=== PATIENT | male | born 1930 | race Caucasian/White ===

== ENCOUNTER 2016-10-07 09:08 | Inpatient (IN) | payer MEDICARE, OTHER ==
[2016-10-07] MEDS ORDERED: Omeprazole 20 MG Cap.CR PO PRN (12:56)
[2016-10-07] MEDS ORDERED: Clobetasol 0.05% Ointment 15 GM Tube TOP PRN (12:56)
[2016-10-07] MEDS ORDERED: PEG 400/Propylene Glycol Ophth Soln 15 ML Bottle EYEBOTH PRN (12:56)
[2016-10-07] MEDS ORDERED: Acetaminophen 325 MG Tab PO PRN (12:56)
[2016-10-07] MEDS ORDERED: Fluticasone Propionate Nasal Spray 16 GM Bottle NASBOTH PRN (14:00)
[2016-10-07] MEDS ORDERED: Diazepam 2 MG Tab PO PRN (14:43)
[2016-10-07] MEDS ORDERED: HYDROCORTISONE 2.5% TOP PRN (14:44)
[2016-10-07] MEDS: Acetaminophen/oxyCODONE 325-5 MG Tab PO PRN ×2 (16:28→20:52)
[2016-10-07] MEDS: Lutein/Minerals/Vitamin C/Vitamin E Acetate Cap PO SCH (21:08)
[2016-10-07] MEDS: Multivitamin Tab PO SCH (21:08)
[2016-10-07] MEDS: Tamsulosin 0.4 MG Cap.ER PO SCH (21:08)
[2016-10-07] MEDS: Latanoprost 0.005% Ophth Soln 2.5 ML Bottle *PTOM EYERT SCH (21:09)
[2016-10-08] MEDS: Acetaminophen/oxyCODONE 325-5 MG Tab PO PRN ×2 (01:09→07:07)
[2016-10-08] MEDS: Levothyroxine 75 MCG Tab PO SCH (07:08)
[2016-10-08] MEDS: Hydrochlorothiazide 12.5 MG Cap PO SCH (08:34)
[2016-10-08] MEDS: Aspirin 81 MG Tab.EC PO SCH (08:34)
[2016-10-08] MEDS: Finasteride 5 MG Tab PO SCH (08:35)
[2016-10-08] MEDS: Potassium Chloride 20 MEQ Tab.ER PO SCH (08:35)
[2016-10-08] MEDS: Cholecalciferol (Vitamin D3) 1,000 Unit Tab PO SCH (08:35)
[2016-10-08] MEDS ORDERED: Acetaminophen 325 MG Tab PO SCH (09:00)
--- NOTE | 2016-10-08 10:13 | PN ---
DATE SEEN: 10/08/2016 SUBJECTIVE: Arsalan Thibodeaux is an 86-year-old male admitted yesterday for swing bed. Status post spinal stenosis surgery, [facility]. There have been some issues of mentation, activity, speech, and increasing confusion. Narcotics, i.e. Percocet, maybe origin of pain. We will discontinue the Percocet. We will add naproxen sodium 500 mg b.i.d. and Tylenol 3000 mg in divided doses given routinely for pain. The wound was inspected, no complicating issues, and dressing in place. OBJECTIVE: CHEST: Clear. HEART: Regular. ABDOMEN: Benign. ASSESSMENT: Postoperative care, swing bed, spinal stenosis surgery. PLAN: Medications adjustment, as noted above. /[id number] DAWIT/MARK
[2016-10-08] MEDS: Naproxen 500 MG Tab PO SCH ×2 (10:41→21:03)
[2016-10-08] MEDS: Acetaminophen 500 MG Tab PO SCH ×3 (10:42→21:03)
--- NOTE | 2016-10-08 13:42 | HP ---
ADMISSION DATE: 10/07/2016 CHIEF COMPLAINT: Postoperative cervical spine stenosis surgery. HISTORY OF PRESENT ILLNESS: Arsalan Thibodeaux is an 86-year-old male, who resides in [facility] in [place], [place]. He moved there about 2 months ago with his from [place]. He presented over the last several months with increasingly complicated neck pain, paresthesias, hypesthesias both upper and lower extremity. He had a recent acute fall, precipitating increasing symptoms. He was seen at [facility] in [place], severe critical spinal stenosis, underwent surgery about a week ago. His postoperative course was uncomplicated with pain as a primary issue. Admitted to [facility] for swing bed. MEDICATIONS: Admitting medications include: 1. Baby aspirin 81 mg. 2. Vitamin D3 of 2000 units daily. 3. Temovate ointment b.i.d. p.r.n. rash. 4. Finasteride/Proscar 5 mg 1 p.o. daily BPH. 5. Flonase p.r.n. 6. Hydrochlorothiazide 12.5 mg 1 p.o. daily edema/blood pressure. 7. Xalatan eyedrops per protocol. 8. Levothyroxine 37.5 mg p.o. daily. 9. Multivitamin one p.o. daily. 10.Prilosec 20 mg 1 p.o. daily, GERD. 11.Potassium chloride 20 mEq 1 p.o. daily, hypokalemia. 12.Systane lubricant b.i.d. both eyes. 13.Senna S one p.o. b.i.d. p.r.n. constipation. 14.Flomax 0.8 mg at bedtime, BPH. 15.Ocuvite lutein one daily. ALLERGIES: No medication, environmental, or latex allergies. Should be noted he has had some problematic BPH, incomplete bladder emptying, documentable episodes of retained bladder quantities greater than 4 mL and subsequent catheterizations. PAST MEDICAL HISTORY: Significant for previous kidney stone operatively. He had bilateral cataract surgery. No other operative procedures, hospitalizations, unusual childhood diseases, major injuries, or fractures. Ongoing medical problems with hypertension, hypothyroidism, gastroesophageal reflux, edema, and BPH. SOCIAL HISTORY: [employer] by occupation in the [place] area, son is doing his farming. is 82. Two kids, son and daughter. Two grand children. Quit smoking 34 years ago. Nil alcohol consumption. No illicit drug use. REVIEW OF SYSTEMS: GENERAL: Troublesome pain in his neck. HEENT: Eyes, sees pretty well. Ears, hears with difficulty in crowds. Oropharynx intact dentition upper and lower plates. CHEST: No cough, wheeze, or congestion. CARDIOVASCULAR: Denies chest pain, palpitations, or syncope. : Poor voiding, chronic catheterization. GI: Regular predictable stools, no blood in stools. SKIN: No open sores or lesions. ENDOCRINE: No excessive thirst, urination. ALLERGIES: No chronic cough, wheeze, or congestion. PSYCHIATRIC: Mood stable. PHYSICAL EXAMINATION: VITAL SIGNS: 36.4, 62, 132/71, 18, and 97. GENERAL: Elderly man, cooperative, conversant. Speech was a little bit gated. HEENT: Funduscopic benign. Bright TMs. Clear nasal discharge. Mouth and oropharynx clear. Brace in place. Wound was inspected. Andrew intact. CHEST: Clear in all lung garcia. HEART: Regular rate without ectopy or significant murmur. ABDOMEN: Benign. No surgical scars. Liver edge palpable. No splenic enlargement. : Deferred. RECTAL: Deferred. EXTREMITIES: Well perfused. Gait and station not tested. SKIN: Benign nevi. LABORATORY STUDIES: Not indicated. Admission to swing bed status post cervical stenosis surgery. PLAN: Medications, care and treatment appropriate. Analgesics as indicated, complementary care and well being. /[id number] DAWIT/MARK
[2016-10-08] MEDS: Tamsulosin 0.4 MG Cap.ER PO SCH (21:03)
[2016-10-08] MEDS: Latanoprost 0.005% Ophth Soln 2.5 ML Bottle *PTOM EYERT SCH (21:03)
[2016-10-08] MEDS: Multivitamin Tab PO SCH (21:04)
[2016-10-08] MEDS: Lutein/Minerals/Vitamin C/Vitamin E Acetate Cap PO SCH (21:04)
[2016-10-09] MEDS: Levothyroxine 75 MCG Tab PO SCH (05:20)
[2016-10-09] MEDS: Cholecalciferol (Vitamin D3) 1,000 Unit Tab PO SCH (08:25)
[2016-10-09] MEDS: Hydrochlorothiazide 12.5 MG Cap PO SCH (08:25)
[2016-10-09] MEDS: Finasteride 5 MG Tab PO SCH (08:26)
[2016-10-09] MEDS: Aspirin 81 MG Tab.EC PO SCH (08:26)
[2016-10-09] MEDS: Potassium Chloride 20 MEQ Tab.ER PO SCH (08:26)
[2016-10-09] MEDS: Naproxen 500 MG Tab PO SCH ×2 (08:26→20:07)
[2016-10-09] MEDS: Acetaminophen 500 MG Tab PO SCH ×3 (08:29→21:56)
[2016-10-09] MEDS: Tamsulosin 0.4 MG Cap.ER PO SCH (20:06)
[2016-10-09] MEDS: Multivitamin Tab PO SCH (20:07)
[2016-10-09] MEDS: Lutein/Minerals/Vitamin C/Vitamin E Acetate Cap PO SCH (20:07)
[2016-10-09] MEDS: Latanoprost 0.005% Ophth Soln 2.5 ML Bottle *PTOM EYERT SCH (20:08)
[2016-10-10] MEDS: Acetaminophen 500 MG Tab PO SCH ×3 (03:35→21:29)
[2016-10-10] MEDS: Levothyroxine 75 MCG Tab PO SCH (06:38)
[2016-10-10] MEDS: Aspirin 81 MG Tab.EC PO SCH (08:56)
[2016-10-10] MEDS: Cholecalciferol (Vitamin D3) 1,000 Unit Tab PO SCH (08:57)
[2016-10-10] MEDS: Potassium Chloride 20 MEQ Tab.ER PO SCH (08:57)
[2016-10-10] MEDS: Naproxen 500 MG Tab PO SCH ×2 (08:57→20:17)
[2016-10-10] MEDS: Hydrochlorothiazide 12.5 MG Cap PO SCH (08:57)
[2016-10-10] MEDS: Finasteride 5 MG Tab PO SCH (08:57)
[2016-10-10] MEDS: Latanoprost 0.005% Ophth Soln 2.5 ML Bottle *PTOM EYERT SCH (20:13)
[2016-10-10] MEDS: Lutein/Minerals/Vitamin C/Vitamin E Acetate Cap PO SCH (20:14)
[2016-10-10] MEDS: Multivitamin Tab PO SCH (20:15)
[2016-10-10] MEDS: Tamsulosin 0.4 MG Cap.ER PO SCH (21:29)
[2016-10-11] MEDS: Acetaminophen 500 MG Tab PO SCH ×3 (04:02→22:02)
[2016-10-11] MEDS: Levothyroxine 75 MCG Tab PO SCH (05:53)
[2016-10-11] MEDS: Aspirin 81 MG Tab.EC PO SCH (08:30)
[2016-10-11] MEDS: Cholecalciferol (Vitamin D3) 1,000 Unit Tab PO SCH (08:31)
[2016-10-11] MEDS: Potassium Chloride 20 MEQ Tab.ER PO SCH (08:31)
[2016-10-11] MEDS: Naproxen 500 MG Tab PO SCH ×2 (08:31→20:48)
[2016-10-11] MEDS: Hydrochlorothiazide 12.5 MG Cap PO SCH (08:31)
[2016-10-11] MEDS: Finasteride 5 MG Tab PO SCH (08:31)
[2016-10-11] MEDS: traMADol 50 MG Tab PO PRN (10:34)
[2016-10-11] MEDS: Tamsulosin 0.4 MG Cap.ER PO SCH (20:47)
[2016-10-11] MEDS: Multivitamin Tab PO SCH (20:48)
[2016-10-11] MEDS: Latanoprost 0.005% Ophth Soln 2.5 ML Bottle *PTOM EYERT SCH (20:48)
[2016-10-11] MEDS: Lutein/Minerals/Vitamin C/Vitamin E Acetate Cap PO SCH (20:48)
[2016-10-12] MEDS: traMADol 50 MG Tab PO PRN ×3 (00:06→17:18)
[2016-10-12] MEDS: Acetaminophen 500 MG Tab PO SCH ×3 (03:27→22:10)
[2016-10-12] MEDS: Levothyroxine 75 MCG Tab PO SCH (05:55)
[2016-10-12] MEDS: Naproxen 500 MG Tab PO SCH ×2 (10:04→22:09)
[2016-10-12] MEDS: Finasteride 5 MG Tab PO SCH (10:04)
[2016-10-12] MEDS: Potassium Chloride 20 MEQ Tab.ER PO SCH (10:04)
[2016-10-12] MEDS: Aspirin 81 MG Tab.EC PO SCH (10:04)
[2016-10-12] MEDS: Hydrochlorothiazide 12.5 MG Cap PO SCH (10:05)
[2016-10-12] MEDS: Cholecalciferol (Vitamin D3) 1,000 Unit Tab PO SCH (10:05)
[2016-10-12] MEDS: Tamsulosin 0.4 MG Cap.ER PO SCH (22:08)
[2016-10-12] MEDS: Latanoprost 0.005% Ophth Soln 2.5 ML Bottle *PTOM EYERT SCH (22:09)
[2016-10-12] MEDS: Multivitamin Tab PO SCH (22:09)
[2016-10-12] MEDS: Lutein/Minerals/Vitamin C/Vitamin E Acetate Cap PO SCH (22:09)
[2016-10-13] MEDS: Levothyroxine 75 MCG Tab PO SCH (05:09)
[2016-10-13] MEDS: Acetaminophen 500 MG Tab PO SCH ×3 (05:10→21:55)
[2016-10-13] MEDS: Naproxen 500 MG Tab PO SCH ×2 (08:48→20:53)
[2016-10-13] MEDS: Potassium Chloride 20 MEQ Tab.ER PO SCH (08:48)
[2016-10-13] MEDS: Finasteride 5 MG Tab PO SCH (08:48)
[2016-10-13] MEDS: Cholecalciferol (Vitamin D3) 1,000 Unit Tab PO SCH (08:48)
[2016-10-13] MEDS: Aspirin 81 MG Tab.EC PO SCH (08:48)
[2016-10-13] MEDS: Hydrochlorothiazide 12.5 MG Cap PO SCH (08:48)
[2016-10-13] MEDS: traMADol 50 MG Tab PO PRN (16:45)
[2016-10-13] MEDS ORDERED: oxyCODONE 5 MG Tab PO ONE (18:45)
[2016-10-13] MEDS: Tamsulosin 0.4 MG Cap.ER PO SCH (20:52)
[2016-10-13] MEDS: Latanoprost 0.005% Ophth Soln 2.5 ML Bottle *PTOM EYERT SCH (20:53)
[2016-10-13] MEDS: Multivitamin Tab PO SCH (20:53)
[2016-10-13] MEDS: Lutein/Minerals/Vitamin C/Vitamin E Acetate Cap PO SCH (20:53)
[2016-10-14] MEDS: Acetaminophen 500 MG Tab PO SCH ×3 (04:03→21:06)
[2016-10-14] MEDS: Levothyroxine 75 MCG Tab PO SCH (06:01)
[2016-10-14] MEDS: Hydrochlorothiazide 12.5 MG Cap PO SCH (08:00)
[2016-10-14] MEDS: Cholecalciferol (Vitamin D3) 1,000 Unit Tab PO SCH (08:00)
[2016-10-14] MEDS: Aspirin 81 MG Tab.EC PO SCH (08:00)
[2016-10-14] MEDS: Finasteride 5 MG Tab PO SCH (08:00)
[2016-10-14] MEDS: Potassium Chloride 20 MEQ Tab.ER PO SCH (08:00)
[2016-10-14] MEDS: Naproxen 500 MG Tab PO SCH ×2 (08:00→21:06)
--- NOTE | 2016-10-14 13:13 | CR ---
INDICATION: Fall, pain. RIGHT SHOULDER, COMPLETE: Four images of the right shoulder were obtained with three projections and revealed moderate hypertrophic degenerative changes at the AC joint and at the glenohumeral joint with narrowing of the inferior portion of the glenohumeral joint to a significant degree with residual joint space of only 1.5 mm on that view. A definite acute fracture or dislocation was not identified, however. IMPRESSION: Osteoarthritis AC joint and glenohumeral joint with significant narrowing of the glenohumeral joint. MTDD
--- NOTE | 2016-10-14 13:15 | CR ---
INDICATION: Fall, pain. CERVICAL SPINE: Four images of the cervical spine were obtained, AP, odontoid and two lateral views, revealing very poor visualization of the odontoid, however, the odontoid appeared grossly intact. Evidence of apparent laminectomy is noted in the cervical spine with multiple skin clips present posteriorly. Hypertrophic degenerative changes are noted at the lateral masses and anteriorly at C4-5, and C5-6 to a lesser degree, and to a much greater extent at C6-7. The vertebral elements appear to be fairly well aligned, without a definite fracture or dislocation. Bone density appeared to be normal. Prevertebral space appeared to be normal. IMPRESSION: 1. No acute fracture or dislocation identified. 2. Post-surgical change - laminectomy. 3. Osteoarthritis mostly at the posterior elements, but also anteriorly at C4- 5 and especially C6-7 with relatively milder hypertrophic changes at C5-6. 4. The odontoid is not well visualized. MTDD
[2016-10-14] MEDS: traMADol 50 MG Tab PO PRN (17:37)
[2016-10-14] MEDS: Tamsulosin 0.4 MG Cap.ER PO SCH (21:05)
[2016-10-14] MEDS: Lutein/Minerals/Vitamin C/Vitamin E Acetate Cap PO SCH (21:06)
[2016-10-14] MEDS: Latanoprost 0.005% Ophth Soln 2.5 ML Bottle *PTOM EYERT SCH (21:06)
[2016-10-14] MEDS: Multivitamin Tab PO SCH (21:06)
[2016-10-15] MEDS: Acetaminophen 500 MG Tab PO SCH ×3 (04:31→21:48)
[2016-10-15] MEDS: Levothyroxine 75 MCG Tab PO SCH (06:24)
[2016-10-15] MEDS: Finasteride 5 MG Tab PO SCH (10:09)
[2016-10-15] MEDS: Potassium Chloride 20 MEQ Tab.ER PO SCH (10:09)
[2016-10-15] MEDS: Naproxen 500 MG Tab PO SCH ×2 (10:09→20:18)
[2016-10-15] MEDS: Cholecalciferol (Vitamin D3) 1,000 Unit Tab PO SCH (10:09)
[2016-10-15] MEDS: Hydrochlorothiazide 12.5 MG Cap PO SCH (10:09)
[2016-10-15] MEDS: Aspirin 81 MG Tab.EC PO SCH (10:09)
[2016-10-15] MEDS: traMADol 50 MG Tab PO PRN ×2 (11:15→18:47)
[2016-10-15] MEDS: Tamsulosin 0.4 MG Cap.ER PO SCH (20:18)
[2016-10-15] MEDS: Lutein/Minerals/Vitamin C/Vitamin E Acetate Cap PO SCH (20:18)
[2016-10-15] MEDS: Multivitamin Tab PO SCH (20:18)
[2016-10-15] MEDS: Latanoprost 0.005% Ophth Soln 2.5 ML Bottle *PTOM EYERT SCH (20:19)
[2016-10-16] MEDS: Acetaminophen 500 MG Tab PO SCH ×3 (03:56→21:00)
[2016-10-16] MEDS: Levothyroxine 75 MCG Tab PO SCH (06:21)
[2016-10-16] MEDS ORDERED: Perform Pain Reliever Gel 89 ML Tube TP ONE ×2 (08:04→11:36)
[2016-10-16] MEDS: Hydrochlorothiazide 12.5 MG Cap PO SCH (08:52)
[2016-10-16] MEDS: Aspirin 81 MG Tab.EC PO SCH (08:52)
[2016-10-16] MEDS: Potassium Chloride 20 MEQ Tab.ER PO SCH (08:52)
[2016-10-16] MEDS: Finasteride 5 MG Tab PO SCH (08:53)
[2016-10-16] MEDS: Naproxen 500 MG Tab PO SCH ×2 (08:53→20:48)
[2016-10-16] MEDS: Cholecalciferol (Vitamin D3) 1,000 Unit Tab PO SCH (08:53)
[2016-10-16] MEDS: traMADol 50 MG Tab PO PRN (17:58)
[2016-10-16] MEDS: Tamsulosin 0.4 MG Cap.ER PO SCH (20:48)
[2016-10-16] MEDS: Multivitamin Tab PO SCH (20:49)
[2016-10-16] MEDS: Lutein/Minerals/Vitamin C/Vitamin E Acetate Cap PO SCH (20:49)
[2016-10-16] MEDS: Latanoprost 0.005% Ophth Soln 2.5 ML Bottle *PTOM EYERT SCH (20:50)
[2016-10-16] MEDS: FLUoxetine 10 MG Cap PO SCH (20:58)
[2016-10-17] MEDS: Acetaminophen 500 MG Tab PO SCH ×3 (04:04→21:17)
[2016-10-17] MEDS: Levothyroxine 75 MCG Tab PO SCH (05:26)
[2016-10-17] MEDS: traMADol 50 MG Tab PO PRN ×2 (07:43→18:03)
[2016-10-17] MEDS: Aspirin 81 MG Tab.EC PO SCH (08:11)
[2016-10-17] MEDS: Potassium Chloride 20 MEQ Tab.ER PO SCH (08:11)
[2016-10-17] MEDS: Hydrochlorothiazide 12.5 MG Cap PO SCH (08:11)
[2016-10-17] MEDS: Finasteride 5 MG Tab PO SCH (08:11)
[2016-10-17] MEDS: Naproxen 500 MG Tab PO SCH ×2 (08:11→20:31)
[2016-10-17] MEDS: Cholecalciferol (Vitamin D3) 1,000 Unit Tab PO SCH (08:12)
[2016-10-17] MEDS: [UNRECOGNIZED DRUG - OTHER] TOP PRN ×2 (08:16→14:24)
[2016-10-17] MEDS: Lutein/Minerals/Vitamin C/Vitamin E Acetate Cap PO SCH (20:31)
[2016-10-17] MEDS: Tamsulosin 0.4 MG Cap.ER PO SCH (20:31)
[2016-10-17] MEDS: Latanoprost 0.005% Ophth Soln 2.5 ML Bottle *PTOM EYERT SCH (20:32)
[2016-10-17] MEDS: Multivitamin Tab PO SCH (20:32)
[2016-10-17] MEDS: FLUoxetine 10 MG Cap PO SCH (20:35)
[2016-10-18] MEDS: Acetaminophen 500 MG Tab PO SCH ×3 (04:14→21:24)
[2016-10-18] MEDS: Levothyroxine 75 MCG Tab PO SCH (05:10)
[2016-10-18] MEDS: traMADol 50 MG Tab PO PRN ×2 (08:16→15:58)
[2016-10-18] MEDS: Aspirin 81 MG Tab.EC PO SCH (08:24)
[2016-10-18] MEDS: Naproxen 500 MG Tab PO SCH ×2 (08:24→21:22)
[2016-10-18] MEDS: Hydrochlorothiazide 12.5 MG Cap PO SCH (08:24)
[2016-10-18] MEDS: Finasteride 5 MG Tab PO SCH (08:24)
[2016-10-18] MEDS: Potassium Chloride 20 MEQ Tab.ER PO SCH (08:24)
[2016-10-18] MEDS: Cholecalciferol (Vitamin D3) 1,000 Unit Tab PO SCH (08:26)
[2016-10-18] MEDS: Tamsulosin 0.4 MG Cap.ER PO SCH (21:21)
[2016-10-18] MEDS: Lutein/Minerals/Vitamin C/Vitamin E Acetate Cap PO SCH (21:22)
[2016-10-18] MEDS: Multivitamin Tab PO SCH (21:23)
[2016-10-18] MEDS: FLUoxetine 10 MG Cap PO SCH (21:23)
[2016-10-18] MEDS: Latanoprost 0.005% Ophth Soln 2.5 ML Bottle *PTOM EYERT SCH (21:24)
[2016-10-19] MEDS: Acetaminophen 500 MG Tab PO SCH ×3 (05:00→22:02)
[2016-10-19] MEDS: Levothyroxine 75 MCG Tab PO SCH (05:00)
[2016-10-19] MEDS: Hydrochlorothiazide 12.5 MG Cap PO SCH (08:25)
[2016-10-19] MEDS: Potassium Chloride 20 MEQ Tab.ER PO SCH (08:25)
[2016-10-19] MEDS: Aspirin 81 MG Tab.EC PO SCH (08:25)
[2016-10-19] MEDS: Cholecalciferol (Vitamin D3) 1,000 Unit Tab PO SCH (08:26)
[2016-10-19] MEDS: Naproxen 500 MG Tab PO SCH ×2 (08:26→20:53)
[2016-10-19] MEDS: Finasteride 5 MG Tab PO SCH (08:26)
[2016-10-19] MEDS: traMADol 50 MG Tab PO PRN ×2 (10:38→15:55)
[2016-10-19] MEDS: Tamsulosin 0.4 MG Cap.ER PO SCH (20:53)
[2016-10-19] MEDS: Multivitamin Tab PO SCH (20:54)
[2016-10-19] MEDS: Latanoprost 0.005% Ophth Soln 2.5 ML Bottle *PTOM EYERT SCH (20:54)
[2016-10-19] MEDS: FLUoxetine 10 MG Cap PO SCH (20:54)
[2016-10-19] MEDS: Lutein/Minerals/Vitamin C/Vitamin E Acetate Cap PO SCH (20:54)
[2016-10-20] MEDS: Acetaminophen 500 MG Tab PO SCH ×3 (04:36→21:20)
[2016-10-20] MEDS: Levothyroxine 75 MCG Tab PO SCH (07:34)
[2016-10-20] MEDS: traMADol 50 MG Tab PO PRN ×3 (07:45→19:42)
[2016-10-20] MEDS: Aspirin 81 MG Tab.EC PO SCH (08:58)
[2016-10-20] MEDS: Naproxen 500 MG Tab PO SCH ×2 (08:58→21:19)
[2016-10-20] MEDS: Potassium Chloride 20 MEQ Tab.ER PO SCH (08:58)
[2016-10-20] MEDS: Hydrochlorothiazide 12.5 MG Cap PO SCH (08:58)
[2016-10-20] MEDS: Finasteride 5 MG Tab PO SCH (08:59)
[2016-10-20] MEDS: Cholecalciferol (Vitamin D3) 1,000 Unit Tab PO SCH (08:59)
[2016-10-20] MEDS: [UNRECOGNIZED DRUG - OTHER] TOP PRN ×2 (10:00→21:20)
[2016-10-20] MEDS: Tamsulosin 0.4 MG Cap.ER PO SCH (21:19)
[2016-10-20] MEDS: FLUoxetine 10 MG Cap PO SCH (21:20)
[2016-10-20] MEDS: Multivitamin Tab PO SCH (21:20)
[2016-10-20] MEDS: Lutein/Minerals/Vitamin C/Vitamin E Acetate Cap PO SCH (21:20)
[2016-10-20] MEDS: Latanoprost 0.005% Ophth Soln 2.5 ML Bottle *PTOM EYERT SCH (21:20)
[2016-10-21] MEDS: Acetaminophen 500 MG Tab PO SCH ×3 (04:40→22:06)
[2016-10-21] MEDS: Levothyroxine 75 MCG Tab PO SCH (06:27)
[2016-10-21] MEDS: traMADol 50 MG Tab PO PRN ×2 (08:28→17:09)
[2016-10-21] MEDS: Potassium Chloride 20 MEQ Tab.ER PO SCH (08:37)
[2016-10-21] MEDS: Hydrochlorothiazide 12.5 MG Cap PO SCH (08:37)
[2016-10-21] MEDS: Naproxen 500 MG Tab PO SCH ×2 (08:37→20:28)
[2016-10-21] MEDS: Finasteride 5 MG Tab PO SCH (08:37)
[2016-10-21] MEDS: Aspirin 81 MG Tab.EC PO SCH (08:37)
[2016-10-21] MEDS: Cholecalciferol (Vitamin D3) 1,000 Unit Tab PO SCH (08:38)
[2016-10-21] MEDS: [UNRECOGNIZED DRUG - OTHER] TOP PRN (08:41)
--- NOTE | 2016-10-21 08:41 | PCM.PN ---
- General Info Date of Service: 10/21/16 Admission Dx/Problem (Free Text): This is an 86-year-old male patient that status post neck surgery for severe spinal stenosis. He still has neck pain. The nurses reported the removed the bandage and there was some they kilo drainage. No erythema around the wound. He denies fevers at this time. The wound discharge was sent for culture last night. - Patient Data Vitals - Most Recent: Last Vital Signs Temp 97.5 F 10/20/16 08:00 Pulse 88 10/20/16 08:00 Resp 18 10/20/16 08:00 BP 124/72 10/20/16 08:00 Pulse Ox 98 10/20/16 08:00 Weight - Most Recent: 141 lb 9.6 oz I&O - Last 24 Hours: Intake & Output 10/20/16 10/21/16 10/21/16 22:59 06:59 14:59 Intake Total 50 Balance 50 Santana Results Last 24 Hours: Microbiology 10/20/16 10:45 Gram Stain - Final Skin / Skin Scrapings - Neck Routine Culture - Preliminary Gram Positive Cocci Med Orders - Current: Current Medications Acetaminophen (Tylenol Extra Strength) 1,000 mg PO TID@0400,1200,2200 [facility] Last Admin: 10/21/16 04:40 Dose: 1,000 mg Aspirin (Halfprin) 81 mg PO DAILY [facility] Last Admin: 10/20/16 08:58 Dose: 81 mg Cholecalciferol (Vitamin D3) 2,000 units PO DAILY [facility] Last Admin: 10/20/16 08:59 Dose: 2,000 units Clobetasol Propionate (Temovate 0.05% Oint) 0 gm TOP BID PRN PRN Reason: RASH/ITCHING Cyanocobalamin (Vitamin B12) 1,000 mcg PO DAILY [facility] Diazepam (Valium) 2 mg PO TID PRN PRN Reason: MUSCLE SPASMS Last Admin: 10/09/16 18:51 Dose: 2 mg Finasteride (Proscar) 5 mg PO DAILY [facility] Last Admin: 10/20/16 08:59 Dose: 5 mg Fluoxetine HCl (Prozac) 10 mg PO BEDTIME [facility] Last Admin: 10/20/16 21:20 Dose: 10 mg Fluticasone Propionate (Flonase) 0 gm NASBOTH DAILY PRN PRN Reason: RHINITIS Hydrochlorothiazide (Hydrochlorothiazide) 12.5 mg PO DAILY [facility] Last Admin: 10/20/16 08:58 Dose: 12.5 mg Hydrocortisone (Hydrocortisone 2.5% Crm) 0 gm TOP TID PRN PRN Reason: ITCHING/RASH Latanoprost (Xalatan 0.005% Ophth Soln) 0 ml EYERT BEDTIME [facility] Last Admin: 10/20/16 21:20 Dose: 1 drop Levothyroxine Sodium (Levothyroxine) 37.5 mcg PO DAILY@0600 [facility] Last Admin: 10/21/16 06:27 Dose: 37.5 mcg Multivitamins/Minerals/Vitamin C (Tab-A-Alee) 1 tab PO BEDTIME [facility] Last Admin: 10/20/16 21:20 Dose: 1 tab Naproxen (Naprosyn) 500 mg PO BID [facility] Last Admin: 10/20/16 21:19 Dose: 500 mg Perform Pain (Relieving Gel) 1 applic TOP QID PRN PRN Reason: pain right shoulder Last Admin: 10/20/16 21:20 Dose: 1 applic Omeprazole (Omeprazole) 20 mg PO DAILY PRN PRN Reason: ACID REFLUX Potassium Chloride (Klor-Con M20) 20 meq PO DAILY [facility] Last Admin: 10/20/16 08:58 Dose: 20 meq Propylene Glycol (Systane Lubricant) 0 ml EYEBOTH BID PRN PRN Reason: Dry Eyes Last Admin: 10/07/16 21:07 Dose: 1 drop Senna/Docusate Sodium (Senna Plus) 1 tab PO BID [facility] Last Admin: 10/20/16 21:20 Dose: 1 tab Tamsulosin HCl (Flomax) 0.8 mg PO BEDTIME [facility] Last Admin: 10/20/16 21:19 Dose: 0.8 mg Tramadol HCl (Ultram) 50 mg PO TID PRN PRN Reason: Pain Last Admin: 10/21/16 08:28 Dose: 50 mg Vit C/Vit E/Zinc/Copper/Lutein (Ocuvite Lutein) 1 each PO BEDTIME [facility] Last Admin: 10/20/16 21:20 Dose: 1 each Discontinued Medications Acetaminophen (Tylenol) 650 mg PO Q4H PRN PRN Reason: Pain Acetaminophen (Tylenol) 1,000 mg PO TID [facility] Acetaminophen (Tylenol Extra Strength) 1,000 mg PO TID [facility] Last Admin: 10/08/16 21:03 Dose: 1,000 mg Oxycodone HCl (Oxycodone) 5 mg PO ONETIME ONE Stop: 10/13/16 18:46 Last Admin: 10/13/16 19:02 Dose: 5 mg Oxycodone/Acetaminophen (Percocet 325-5 Mg) 1 tab PO Q4H PRN PRN Reason: PAIN Last Admin: 10/08/16 07:07 Dose: 1 tab Senna/Docusate Sodium (Senna Plus) 1 tab PO BID PRN PRN Reason: Constipation Last Admin: 10/14/16 17:36 Dose: 1 tab - Exam General: Alert, Oriented, Cooperative Neck: Other (Hard colar implace) Lungs: Normal Respiratory Effort Skin: Other (Wound has megan in. Little bit of thick yellow drainage. No erythema.) - Problem List & Annotations (1) H/O neck surgery SNOMED Code(s): 037398271 Code(s): Z98.890 - OTHER SPECIFIED POSTPROCEDURAL STATES Status: Acute Current Visit: Yes (2) Wound drainage SNOMED Code(s): 288532014, 742905118 Code(s): T14.8 - OTHER INJURY OF UNSPECIFIED BODY REGION Status: Acute Current Visit: Yes - Problem List Review Problem List Initiated/Reviewed/Updated: Yes - My Orders Last 24 Hours: My Active Orders 10/20/16 10:45 CULTURE ROUTINE + SMEAR [RM] Routine 10/21/16 09:00 Cyanocobalamin (Vitamin B12) [Vitamin B12] 1,000 mcg PO DAILY - Plan Plan:: 1. The wound has gram-positive cocci. Culture pending. 2. Start cephalexin 5 mg 3 times a day. 3. Patient has an appointment in 2 days with a PA from neurosurgery.
[2016-10-21] MEDS: Cephalexin 500 MG Cap PO SCH ×3 (09:05→20:29)
[2016-10-21] MEDS: Cyanocobalamin (Vitamin B12) 1,000 MCG Tab PO SCH (09:05)
[2016-10-21] MEDS: Tamsulosin 0.4 MG Cap.ER PO SCH (20:29)
[2016-10-21] MEDS: Latanoprost 0.005% Ophth Soln 2.5 ML Bottle *PTOM EYERT SCH (20:29)
[2016-10-21] MEDS: Multivitamin Tab PO SCH (20:30)
[2016-10-21] MEDS: FLUoxetine 10 MG Cap PO SCH (20:31)
[2016-10-21] MEDS: Lutein/Minerals/Vitamin C/Vitamin E Acetate Cap PO SCH (20:33)
[2016-10-22] MEDS: traMADol 50 MG Tab PO PRN ×2 (08:15→17:19)
[2016-10-22] MEDS: Aspirin 81 MG Tab.EC PO SCH (08:44)
[2016-10-22] MEDS: Hydrochlorothiazide 12.5 MG Cap PO SCH (08:44)
[2016-10-22] MEDS: Cyanocobalamin (Vitamin B12) 1,000 MCG Tab PO SCH (08:45)
[2016-10-22] MEDS: Cephalexin 500 MG Cap PO SCH ×3 (08:45→20:31)
[2016-10-22] MEDS: Finasteride 5 MG Tab PO SCH (08:45)
[2016-10-22] MEDS: Potassium Chloride 20 MEQ Tab.ER PO SCH (08:45)
[2016-10-22] MEDS: Naproxen 500 MG Tab PO SCH ×2 (08:45→20:31)
[2016-10-22] MEDS: Cholecalciferol (Vitamin D3) 1,000 Unit Tab PO SCH (08:45)
[2016-10-22] MEDS: Acetaminophen 500 MG Tab PO SCH ×3 (11:30→21:57)
[2016-10-22] MEDS: Levothyroxine 75 MCG Tab PO SCH (16:29)
[2016-10-22] MEDS: Multivitamin Tab PO SCH (20:31)
[2016-10-22] MEDS: FLUoxetine 10 MG Cap PO SCH (20:31)
[2016-10-22] MEDS: Lutein/Minerals/Vitamin C/Vitamin E Acetate Cap PO SCH (20:31)
[2016-10-22] MEDS: Latanoprost 0.005% Ophth Soln 2.5 ML Bottle *PTOM EYERT SCH (20:31)
[2016-10-22] MEDS: Tamsulosin 0.4 MG Cap.ER PO SCH (20:31)
[2016-10-23] MEDS: Acetaminophen 500 MG Tab PO SCH ×2 (04:57→18:51)
[2016-10-23] MEDS: Levothyroxine 75 MCG Tab PO SCH (05:00)
[2016-10-23] MEDS: traMADol 50 MG Tab PO PRN ×2 (07:36→13:30)
[2016-10-23 07:43] VITALS: BP 158/81
[2016-10-23] MEDS: Hydrochlorothiazide 12.5 MG Cap PO SCH (09:49)
[2016-10-23] MEDS: Aspirin 81 MG Tab.EC PO SCH (09:50)
[2016-10-23] MEDS: Naproxen 500 MG Tab PO SCH (09:51)
[2016-10-23] MEDS: Cephalexin 500 MG Cap PO SCH (09:51)
[2016-10-23] MEDS: Potassium Chloride 20 MEQ Tab.ER PO SCH (09:51)
[2016-10-23] MEDS: Finasteride 5 MG Tab PO SCH (09:52)
[2016-10-23] MEDS: Cholecalciferol (Vitamin D3) 1,000 Unit Tab PO SCH (09:52)
[2016-10-23] MEDS: Cyanocobalamin (Vitamin B12) 1,000 MCG Tab PO SCH (09:52)
--- NOTE | 2016-10-23 10:24 | PCM.SN ---
- Free Text/Narrative Note: Ok to take Ultram with to appt in [place].
[2016-10-23] MEDS ORDERED: Perform Pain Reliever Gel 89 ML Tube TP PRN (11:37)
--- NOTE | 2016-10-28 02:13 | DISCH ---
DISCHARGE DATE: 10/23/2016 REASON FOR ADMISSION: 1. Cervical stenosis status post surgery. 2. Constipation. DISCHARGE DIAGNOSES: 1. Wound check. 2. 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 BRIEF HISTORY: This is an 86-year-old, admitted to [facility] on October 07 for rehabilitation. Neck pain was difficult to control. On a followup visit to [facility] on the , he was subsequently admitted to rule out infection and further investigation with an MRI. As such, we discharged him from our system on the . I spent less than 30 minutes into discharge. /[id number] TING/MARK
== END 2016-10-23 18:15 | disposition still patient (30) | DRG 552 ==
LOC: FB.MS 12:01
PROVIDERS: ADMIT Family Medicine; ATTEND Family Medicine
DX: M54.2 Cervicalgia (principal); T81.4XXA Infection following a procedure, initial encounter; Z98.890 Other specified postprocedural states; I10 Essential (primary) hypertension; E03.9 Hypothyroidism, unspecified; K21.9 Gastro-esophageal reflux disease without esophagitis; Z79.82 Long term (current) use of aspirin; Z87.891 Personal history of nicotine dependence; M25.511 Pain in right shoulder; N40.1 Benign prostatic hyperplasia with lower urinary tract symptoms; R33.8 Other retention of urine; R39.14 Feeling of incomplete bladder emptying; R89.5 Abnormal microbiological findings in specimens from other organs, systems and tissues; M48.02 Spinal stenosis, cervical region
CPT/HCPCS: 72040; 73030-RT; 87070; 87077; 87186; 87205; 97110-GO; 97110-GP; 97116-GP; 97161-GP; 97166-GO; 97530-GO; 97530-GO-KX; 97530-GP; 97535-GO; 97542-GO; A9270-GY

== ENCOUNTER 2016-10-27 10:42 | Inpatient (IN) | payer MEDICARE, OTHER ==
[2016-10-27] MEDS: Acetaminophen 325 MG Tab PO PRN ×2 (13:10→18:21)
[2016-10-27] MEDS ORDERED: Acetaminophen/HYDROcodone 325-5 MG Tab PO PRN (15:02)
[2016-10-27] MEDS ORDERED: Fluticasone Propionate Nasal Spray 16 GM Bottle NAS PRN (15:06)
[2016-10-27] MEDS ORDERED: Clobetasol 0.05% Ointment 15 GM Tube TOP PRN (15:06)
[2016-10-27] MEDS ORDERED: PEG 400/Propylene Glycol Ophth Soln 15 ML Bottle EYEBOTH PRN (15:06)
[2016-10-27] MEDS ORDERED: Pantoprazole 40 MG Tab.CR PO PRN (15:06)
[2016-10-27] MEDS ORDERED: ASCORBATE CALCIUM PO PRN (15:06)
[2016-10-27] MEDS ORDERED: Non-Formulary Medication 1 Each (Triamcinolone Acetonide [Nasacort] 1 SPRAY) NASBOTH PRN (15:06)
[2016-10-27] MEDS ORDERED: Acetaminophen 325 MG Tab PO PRN (15:06)
[2016-10-27] MEDS ORDERED: Perform Pain Reliever Gel 89 ML Tube TP PRN (16:00)
[2016-10-27] MEDS: Sodium Chloride 0.9% 10 ML Syringe FLUSH PRN ×2 (16:20→20:25)
[2016-10-27] MEDS: Sodium Chloride 0.9% 250 ML IV SCH (16:25)
[2016-10-27] MEDS: Cefepime 2 GM in Sodium Chloride 0.9% 50 ML IV SCH (16:26)
[2016-10-27] MEDS ORDERED: Clobetasol 0.05% Crm 15 GM Tube TOP PRN (17:00)
--- NOTE | 2016-10-27 17:34 | PCM.HP ---
H&P History of Present Illness - General Date of Service: 10/27/16 Admit Problem/Dx: Admission Diagnosis/Problem Admission Diagnosis/Problem Infection of skin Source of Information: Patient History Limitations: Reports: No Limitations - History of Present Illness Initial Comments - Free Text/Narative: This is a 86-year-old male patient is status post cervical laminectomy. Had a little drainage from the wound and was seen in [place]. He was admitted and infectious disease saw him send him back on swing bed with vancomycin. He states he feels good. He denies fevers, chills. He has a little neck pain. He has little bit of right low back pain. Posterior Neck Pain Score (Numeric/FACES): 5 - Related Data Allergies/Adverse Reactions: Allergies Allergy/AdvReac Type Severity Reaction Status Date / Time No Known Allergies Allergy Verified 10/07/16 15:31 Home Medications: Home Meds Acetaminophen [Tylenol] 650 mg PO Q4H PRN 10/07/16 [History] Cholecalciferol (Vitamin D3) [Vitamin D3] 2,000 unit PO DAILY 10/07/16 [History] Clobetasol [Temovate 0.05% Crm] 1 applic TOP BID PRN 10/07/16 [History] Finasteride 5 mg PO DAILY 10/07/16 [History] Hydrochlorothiazide 12.5 mg PO DAILY 10/07/16 [History] Latanoprost [Xalatan 0.005% Ophth Soln] 1 drop EYERT BEDTIME 10/07/16 [History] Levothyroxine 37.5 mcg PO DAILY 10/07/16 [History] Lutein 6 mg PO BEDTIME 10/07/16 [History] Multivitamin [Daily Alee] 1 tab PO BEDTIME 10/07/16 [History] Omeprazole 20 mg PO DAILY PRN 10/07/16 [History] Potassium Chloride [K-Tab ER] 20 meq PO DAILY 10/07/16 [History] Propylene Glycol/Peg 400 [Systane 0.3-0.4% Eye Drops] 1 drop EYEBOTH BID PRN 11/15 [History] Sennosides/Docusate Sodium [Senna-S] 1 tab PO BID PRN 10/07/16 [History] Tamsulosin [Flomax] 0.8 mg PO BEDTIME 10/07/16 [History] Triamcinolone Acetonide [Nasacort] 1 spray NASBOTH BID PRN 10/07/16 [History] Ascorbate Calcium [Vitamin C] 250 mg PO ASDIRECTED PRN 10/27/16 [History] Aspirin [Halfprin] 81 mg PO DAILY 10/27/16 [History] Cyanocobalamin (Vitamin B-12) [B-12] 1,000 mcg PO DAILY 10/27/16 [History] FLUoxetine [PROzac] 10 mg PO BEDTIME 10/27/16 [History] Heparin Sodium,Porcine/PF [Heparin Lock Flush 100 Unit/ml] 300 unit IV ASDIRECTED 10/27/16 [History] Lutein/Min/Vit C/Vit E Acetate [Ocuvite Lutein] 1 cap PO BEDTIME 10/27/16 [ History] Menthol [Perform Pain Reliever] 1 applic TP QID PRN 10/27/16 [History] Past Medical History HEENT History: Reports: Cataract, Glaucoma, Macular Degeneration Cardiovascular History: Reports: Hypertension Gastrointestinal History: Reports: Other (See Below) Other Gastrointestinal History: Acid reflux Genitourinary History: Reports: BPH Musculoskeletal History: Reports: Arthritis, Other (See Below) Other Musculoskeletal History: Arthritis in back, spine and right thumb. Endocrine/Metabolic History: Reports: Hypothyroidism Hematologic History: Reports: B12 Deficiency Dermatologic History: Reports: Eczema - Infectious Disease History Infectious Disease History: Reports: Chicken Pox, Measles, Mumps - Past Surgical History HEENT Surgical History: Reports: Other (See Below) Other HEENT Surgeries/Procedures: Laminectomy 10/04/16. Cardiovascular Surgical History: Reports: None GI Surgical History: Reports: None Male Surgical History: Reports: Kidney Stone Extraction Endocrine Surgical History: Reports: None Neurological Surgical History: Reports: Laminectomy Musculoskeletal Surgical History: Reports: Other (See Below) Other Musculoskeletal Surgeries/Procedures:: cervical laminectomy approx 1 month ago Social & Family History - Family History Family Medical History: Noncontributory - Tobacco Use Smoking Status *Q: Former Smoker Used Tobacco, but Quit: Yes Month Tobacco Last Used: ? Second Hand Smoke Exposure: No - Caffeine Use Caffeine Use: Reports: None - Alcohol Use Days Per Week of Alcohol Use: 1 Number of Drinks Per Day: 0 Total Drinks Per Week: 0 - Recreational Drug Use Recreational Drug Use: No H&P Review of Systems - Review of Systems: Review Of Systems: See Below General: Reports: No Symptoms HEENT: Reports: No Symptoms Pulmonary: Reports: No Symptoms Cardiovascular: Reports: No Symptoms Gastrointestinal: Reports: No Symptoms Genitourinary: Reports: No Symptoms Musculoskeletal: Reports: Neck Pain, Back Pain Skin: Reports: No Symptoms Psychiatric: Reports: No Symptoms Neurological: Reports: No Symptoms Hematologic/Lymphatic: Reports: No Symptoms Immunologic: Reports: No Symptoms Exam - Exam Exam: See Below - Vital Signs Vital Signs: Last Vital Signs Temp 98.3 F 10/27/16 12:59 Pulse Resp 16 10/27/16 12:59 BP 135/77 10/27/16 12:59 Pulse Ox 98 10/27/16 12:59 Weight: 139 lb 8 oz - Exam General: Alert, Oriented, Cooperative HEENT: Hearing Intact, Mucosa Moist & Obion, Posterior Pharynx Clear, TMs Clear Neck: Supple, Trachea Midline. No: Carotid Bruit Lungs: Clear to Auscultation, Normal Respiratory Effort Cardiovascular: Regular Rate, Regular Rhythm, Systolic Murmur GI/Abdominal Exam: Normal Bowel Sounds, Soft, Non-Tender, No Organomegaly, No Distention Back Exam: Normal Inspection, Decreased Range of Motion (Neck), Muscle Spasm ( Right low back) Extremities: Normal Inspection, Normal Range of Motion, Non-Tender, No Pedal Edema Skin: Warm, Dry, Intact Neurological: Normal Speech, Normal Tone Neuro Extensive - Mental Status: Alert, Oriented x3, Normal Mood/Affect, Normal Cognition, Memory Intact Psychiatric: Alert, Normal Affect, Normal Mood *Q Meaningful Use (ADM) - VTE *Q VTE Criteria *Q: - Stroke *Q Stroke Criteria *Q: - AMI *Q AMI Criteria *Q: - Problem List (1) Wound infection after surgery SNOMED Code(s): 99499138, 688775382 ICD Code: T81.4XXA - INFECTION FOLLOWING A PROCEDURE, INITIAL ENCOUNTER Status: Acute Current Visit: Yes (2) H/O neck surgery SNOMED Code(s): 197611663 ICD Code: Z98.890 - OTHER SPECIFIED POSTPROCEDURAL STATES Status: Acute Current Visit: No Problem List Initiated/Reviewed/Updated: Yes Orders Last 24hrs: Active Orders 24 hr Category Date Time Status Patient Status [ADT] Routine ADT 10/27/16 15:02 Active Oxygen Therapy [RC] PRN Care 10/27/16 15:02 Active Up With Assistance [RC] 09,13,17,21 Care 10/27/16 15:02 Active Vital Signs [RC] 08 Care 10/27/16 15:02 Active OT Evaluation and Treatment [CONS] Routine Cons 10/27/16 15:02 Active PT Evaluation and Treatment [CONS] Routine Cons 10/27/16 15:02 Active Regular Diet [DIET] Diet 10/27/16 Dinner Active VANCOMYCIN TROUGH [CHEM] Timed Lab 10/29/16 05:30 Ordered Acetaminophen [Tylenol] Med 10/27/16 12:59 Active 650 mg PO Q4H PRN Acetaminophen/HYDROcodone [Chowchilla 325-5 MG] Med 10/27/16 15:02 Active 1 tab PO Q4H PRN Ascorbate Calcium [Vitamin C] Med 10/27/16 15:06 Pending 250 mg PO ASDIRECTED PRN Aspirin [Halfprin] Med 10/28/16 09:00 Active 81 mg PO DAILY Cefepime [Maxipime] 2 gm Med 10/27/16 16:00 Active Sodium Chloride 0.9% [Normal Saline] 50 ml IV Q8H Cholecalciferol (Vitamin D3) [Vitamin D3] Med 10/28/16 09:00 Active 2,000 units PO DAILY Clobetasol [Clobetasol Propionate 0.05%] Med 10/27/16 17:00 Active 0 gm TOP BID PRN Cyanocobalamin (Vitamin B12) [Vitamin B12] Med 10/28/16 09:00 Active 1,000 mcg PO DAILY Docusate Sodium/Sennosides [Senna Plus] Med 10/27/16 15:06 Active 1 tab PO BID PRN FLUoxetine [PROzac] Med 10/27/16 21:00 Active 10 mg PO BEDTIME Finasteride [Proscar] Med 10/28/16 09:00 Active 5 mg PO DAILY Fluticasone Propionate [Flonase] Med 10/27/16 15:06 Active 0 gm ERNESTINA DAILY PRN Heparin Sodium [Heparin Lock Flush 100 Units/ML] Med 10/27/16 19:00 Active 300 units FLUSH ASDIRECTED PRN Hydrochlorothiazide Med 10/28/16 09:00 Active 12.5 mg PO DAILY Latanoprost [Xalatan 0.005% Ophth Soln] Med 10/27/16 21:00 Active 0 ml EYERT BEDTIME Levothyroxine Med 10/28/16 06:00 Active 37.5 mcg PO DAILY@0600 Lutein [Lutein] Med 10/27/16 21:00 Pending 6 mg PO BEDTIME Lutein/Min/Vit C/Vit E Acetate [Ocuvite Lutein] Med 10/27/16 21:00 Active 1 each PO BEDTIME Menthol [Perform Pain Reliever] Med 10/27/16 17:00 Active 0 ml TP QID PRN Multivitamins [Tab-A-Alee] Med 10/27/16 21:00 Active 1 tab PO BEDTIME PEG 400/Propylene Glycol [Systane Lubricant] Med 10/27/16 15:06 Active 0 ml EYEBOTH BID PRN Pantoprazole [ProTONIX] Med 10/27/16 15:06 Active 40 mg PO DAILY PRN Potassium Chloride [Klor-Con M20] Med 10/28/16 09:00 Active 20 meq PO DAILY Sodium Chloride 0.9% [Normal Saline] 250 ml Med 10/27/16 16:45 Active IV ASDIRECTED Sodium Chloride 0.9% [Saline Flush] Med 10/27/16 16:34 Active 10 ml FLUSH ASDIRECTED PRN Tamsulosin [Flomax] Med 10/27/16 21:00 Active 0.8 mg PO BEDTIME Vancomycin 1,000 mg Med 10/27/16 18:00 Active Sodium Chloride 0.9% [Normal Saline] 250 ml IV Q12H Resuscitation Status Routine Resus Stat 10/27/16 15:02 Ordered Medication Orders Acetaminophen (Tylenol) 650 mg PO Q4H PRN PRN Reason: Pain Last Admin: 10/27/16 13:10 Dose: 650 mg Hydrocodone Bitart/Acetaminophen (Chowchilla 325-5 Mg) 1 tab PO Q4H PRN PRN Reason: Pain (moderate 4-6) Aspirin (Halfprin) 81 mg PO DAILY [facility] Cholecalciferol (Vitamin D3) 2,000 units PO DAILY [facility] Clobetasol Propionate (Clobetasol Propionate 0.05%) 0 gm TOP BID PRN PRN Reason: RASH/ITCHING Cyanocobalamin (Vitamin B12) 1,000 mcg PO DAILY [facility] Finasteride (Proscar) 5 mg PO DAILY [facility] Fluoxetine HCl (Prozac) 10 mg PO BEDTIME [facility] Fluticasone Propionate (Flonase) 0 gm ERNESTINA DAILY PRN PRN Reason: as directed Heparin Sodium (Porcine) (Heparin Lock Flush 100 Units/Ml) 300 units FLUSH ASDIRECTED PRN PRN Reason: AFTER ANTIBIOTIC INFUSION Hydrochlorothiazide (Hydrochlorothiazide) 12.5 mg PO DAILY [facility] Cefepime HCl 2 gm/ Sodium (Chloride) 50 mls @ 100 mls/hr IV Q8H [facility] Last Admin: 10/27/16 16:26 Dose: 100 mls/hr Vancomycin HCl 1,000 mg/ (Sodium Chloride) 250 mls @ 250 mls/hr IV Q12H [facility] Sodium Chloride (Normal Saline) 250 mls @ 100 mls/hr IV ASDIRECTED [facility] Latanoprost (Xalatan 0.005% Ophth Soln) 0 ml EYERT BEDTIME [facility] Levothyroxine Sodium (Levothyroxine) 37.5 mcg PO DAILY@0600 [facility] Menthol (Perform Pain Reliever) 0 ml TP QID PRN PRN Reason: PAIN Multivitamins/Minerals/Vitamin C (Tab-A-Alee) 1 tab PO BEDTIME [facility] Non-Formulary Medication (Ascorbate Calcium [Vitamin C]) 250 mg PO ASDIRECTED PRN PRN Reason: ASDIRECTED Non-Formulary Medication (Lutein [Lutein]) 6 mg PO BEDTIME [facility] Pantoprazole Sodium (Protonix) 40 mg PO DAILY PRN PRN Reason: ACID REFLUX Potassium Chloride (Klor-Con M20) 20 meq PO DAILY [facility] Propylene Glycol (Systane Lubricant) 0 ml EYEBOTH BID PRN PRN Reason: Dry Eyes Senna/Docusate Sodium (Senna Plus) 1 tab PO BID PRN PRN Reason: Constipation Sodium Chloride (Saline Flush) 10 ml FLUSH ASDIRECTED PRN PRN Reason: Other Tamsulosin HCl (Flomax) 0.8 mg PO BEDTIME [facility] Vit C/Vit E/Zinc/Copper/Lutein (Ocuvite Lutein) 1 each PO BEDTIME [facility] Assessment/Plan Comment:: 1 admit to swing bed. 2. IV antibiotics and weekly labs per infectious disease. 3. Full code 4. Regular diet. 5. PT/OT.
[2016-10-27] MEDS: FLUoxetine 10 MG Cap PO SCH (20:25)
[2016-10-27] MEDS: Multivitamin Tab PO SCH (20:25)
[2016-10-27] MEDS: Lutein/Minerals/Vitamin C/Vitamin E Acetate Cap PO SCH (20:25)
[2016-10-27] MEDS: Tamsulosin 0.4 MG Cap.ER PO SCH (20:25)
[2016-10-27] MEDS: Latanoprost 0.005% Ophth Soln 2.5 ML Bottle EYERT SCH (20:25)
[2016-10-27] MEDS ORDERED: Latanoprost 0.005% Ophth Soln 2.5 ML Bottle EYERT SCH (21:00)
[2016-10-28] MEDS: Cefepime 2 GM in Sodium Chloride 0.9% 50 ML IV SCH ×3 (00:24→16:25)
[2016-10-28] MEDS: Sodium Chloride 0.9% 10 ML Syringe FLUSH PRN ×4 (01:23→18:43)
[2016-10-28] MEDS: Acetaminophen 325 MG Tab PO PRN ×3 (03:46→19:30)
[2016-10-28] MEDS: Levothyroxine 75 MCG Tab PO SCH (07:02)
[2016-10-28] MEDS: Cyanocobalamin (Vitamin B12) 1,000 MCG Tab PO SCH (08:47)
[2016-10-28] MEDS: Finasteride 5 MG Tab PO SCH (08:47)
[2016-10-28] MEDS: Hydrochlorothiazide 12.5 MG Cap PO SCH (08:47)
[2016-10-28] MEDS: Potassium Chloride 20 MEQ Tab.ER PO SCH (08:47)
[2016-10-28] MEDS: Cholecalciferol (Vitamin D3) 1,000 Unit Tab PO SCH (08:48)
[2016-10-28] MEDS: Aspirin 81 MG Tab.EC PO SCH (08:48)
[2016-10-28] MEDS: traMADol 50 MG Tab PO PRN ×2 (09:00→15:04)
[2016-10-28] MEDS: Sodium Chloride 0.9% 250 ML IV SCH (16:25)
[2016-10-28] MEDS: Tamsulosin 0.4 MG Cap.ER PO SCH (20:34)
[2016-10-28] MEDS: Multivitamin Tab PO SCH (20:35)
[2016-10-28] MEDS: Lutein/Minerals/Vitamin C/Vitamin E Acetate Cap PO SCH (20:35)
[2016-10-28] MEDS: FLUoxetine 10 MG Cap PO SCH (20:35)
[2016-10-28] MEDS: Latanoprost 0.005% Ophth Soln 2.5 ML Bottle EYERT SCH (20:35)
[2016-10-29] MEDS: Cefepime 2 GM in Sodium Chloride 0.9% 50 ML IV SCH ×4 (00:49→23:51)
[2016-10-29] MEDS: Sodium Chloride 0.9% 10 ML Syringe FLUSH PRN ×7 (01:22→23:50)
[2016-10-29] MEDS: Acetaminophen 325 MG Tab PO PRN ×2 (03:13→09:44)
[2016-10-29] MEDS: Levothyroxine 75 MCG Tab PO SCH (06:01)
[2016-10-29] MEDS: traMADol 50 MG Tab PO PRN ×3 (07:52→21:15)
[2016-10-29] MEDS: Potassium Chloride 20 MEQ Tab.ER PO SCH (08:39)
[2016-10-29] MEDS: Hydrochlorothiazide 12.5 MG Cap PO SCH (08:40)
[2016-10-29] MEDS: Cholecalciferol (Vitamin D3) 1,000 Unit Tab PO SCH (08:40)
[2016-10-29] MEDS: Cyanocobalamin (Vitamin B12) 1,000 MCG Tab PO SCH (08:41)
[2016-10-29] MEDS: Aspirin 81 MG Tab.EC PO SCH (08:41)
[2016-10-29] MEDS: Finasteride 5 MG Tab PO SCH (08:41)
[2016-10-29] MEDS: Perform Pain Reliever Gel 89 ML Tube TP PRN (12:21)
[2016-10-29] MEDS ORDERED: Acetaminophen/HYDROcodone 325-5 MG Tab PO PRN (13:20)
[2016-10-29] MEDS ORDERED: Clopidogrel 75 MG Tab PO ONE (19:55)
[2016-10-29] MEDS ORDERED: Iopamidol 755 Mg/ML 75 ML Bottle IV ONE (20:07)
[2016-10-29] MEDS: Lutein/Minerals/Vitamin C/Vitamin E Acetate Cap PO SCH (21:24)
[2016-10-29] MEDS: Tamsulosin 0.4 MG Cap.ER PO SCH (21:24)
[2016-10-29] MEDS: FLUoxetine 10 MG Cap PO SCH (21:25)
[2016-10-29] MEDS: Latanoprost 0.005% Ophth Soln 2.5 ML Bottle EYERT SCH (21:25)
[2016-10-29] MEDS: Multivitamin Tab PO SCH (21:25)
[2016-10-30] MEDS: Sodium Chloride 0.9% 10 ML Syringe FLUSH PRN ×4 (00:35→10:50)
[2016-10-30] MEDS: Acetaminophen 325 MG Tab PO PRN (01:50)
[2016-10-30] MEDS: Levothyroxine 75 MCG Tab PO SCH (06:44)
[2016-10-30] MEDS: traMADol 50 MG Tab PO PRN (06:45)
[2016-10-30] MEDS: Cefepime 2 GM in Sodium Chloride 0.9% 50 ML IV SCH ×2 (07:55→16:11)
[2016-10-30] MEDS: Sodium Chloride 0.9% 250 ML IV SCH (07:56)
[2016-10-30] MEDS ORDERED: LORazepam 0.5 MG Tab PO PRN (08:28)
[2016-10-30] MEDS: Potassium Chloride 20 MEQ Tab.ER PO SCH (08:54)
[2016-10-30] MEDS: Hydrochlorothiazide 12.5 MG Cap PO SCH (08:54)
[2016-10-30] MEDS: Finasteride 5 MG Tab PO SCH (08:54)
[2016-10-30] MEDS: Perform Pain Reliever Gel 89 ML Tube TP PRN (08:57)
[2016-10-30] MEDS: Cholecalciferol (Vitamin D3) 1,000 Unit Tab PO SCH (08:59)
[2016-10-30] MEDS: Cyanocobalamin (Vitamin B12) 1,000 MCG Tab PO SCH (08:59)
[2016-10-30] MEDS ORDERED: Clopidogrel 75 MG Tab PO SCH (09:00)
[2016-10-30] MEDS: Gabapentin 300 MG Cap PO SCH ×2 (09:10→20:17)
[2016-10-30] MEDS: Aspirin 81 MG Tab.EC PO SCH (09:11)
--- NOTE | 2016-10-30 09:24 | CT ---
INDICATION: Altered mental status, sudden onset confusion today. CT HEAD WITHOUT CONTRAST: Serial contiguous 2.5 and 5-mm sections were obtained through the brain without contrast 10/29/2016. No comparisons were available. Total Exam DLP = 949.36 mGy-cm. The visualized paranasal sinuses and the mastoid air cells appear to be well aerated. No cranial abnormality was suggested. No shift of midline structures was identified. Ventricles are somewhat prominent, as are sulci, compatible with generalized mild atrophy, and the patient's age. There are some patchy areas of decreased density in the white matter, compatible with mild to moderate microvascular disease. Coronary artery calcifications are noted. No finding to strongly suggest an acute intracranial abnormality was identified - no bleeding site or hematoma was seen. It is difficult to entirely exclude evolving thrombotic CVAs posteroparietal areas. IMPRESSION: 1. No definite acute intracranial abnormality. 2. Arterial calcifications internal carotid arteries. 3. Moderate microvascular disease with some changes in the posteroparietal areas making it difficult to exclude evolving thrombotic CVAs. 4. No bleeding site or hematoma was identified. Report was called to Dr. Duque at 1849 hours, 10/29/2016. [facility]
--- NOTE | 2016-10-30 09:49 | ER ---
DATE SEEN: HISTORY: This is an 86-year-old man who had a neck laminectomy, 10/04/2016, is now recovering from skin infection and has been placed on Vancomycin and cefepime. At 1715 hours today, he experienced a half hour of significant confusion, he could not answer questions or verbalize anything. He had random active motion of his arms inappropriately. He persisted with incongruent parallel conversation, and did not follow conversation whatsoever. He did not have any significant findings of paresis, weakness, or change in skin, face, upper or lower extremities. He could stand and walk. MEDICATIONS: 1. Tylenol. 2. [place] 325/5 mg. 3. Aspirin 81 mg. 4. Cefepime 2 g every 8 hours. 5. Vancomycin 750 mg q.12 hours plus heparin flush into his IV site after each antibiotic use. 6. Prozac 10 mg at bedtime. 7. Finasteride 5 mg daily. 8. Cyanocobalamin. 9. Vitamin B12. 10.Clobetasol propionate 0.05% for rash and itching. 11.Latanoprost-Xalatan 0.005% at bedtime. 12.Levothyroxine 37.5 mcg daily. 13.Lutein 10 mg at bedtime. 14.Menthol p.r.n. 15.Minerals and vitamins C. 16.Protonix 40 mg daily. 17.Potassium chloride 20 mEq daily. 18.Eye lubricant propylene glycol p.r.n. dry eyes. 19.Tamsulosin 0.8 mg at bedtime. 20.Tramadol p.r.n. 50 mg. ALLERGIES: None. PHYSICAL EXAMINATION: VITAL SIGNS: Blood pressure 158/78, heart rate 72, respirations 16, oxygen saturation 97%, temperature is 97.5 degrees. When I examined the patient, he did not have the confusion. He is alert, appropriate, talkative, approximately half hour to 45 minutes after the initial incident. He had CT performed which Dr. 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 There is no evidence for bleed. This was approximately 2 hours after the onset of patient's symptoms. With this in mind, discussion was undertaken with the neurologist, Dr. Longoria, of [facility]. He suggested that the patient be started on Plavix 300 mg load, Plavix 75 mg daily, and since he did not meet the NIH criteria for stroke, since his symptoms have resolved, then lytics should not be used and also the patient had recent surgery, which would contraindicate lytic use. He suggested getting an MRI. Since MRI is not available, he suggested performing a CT angio of the neck and the head. Those have been ordered. The medicine has been ordered. The patient's status to be followed by Dr. Harrell after completion of these studies. If necessary, Dr. Harrell may have to call Dr. Longoria regarding these studies. Dr. Longoria looked at the CAT scan, it has been pushed through to him. The initial CAT scan today had suggestion of bilateral thrombotic CVA. He thought these were old and not new findings and perhaps not worthy of lytic therapy on the basis of the CAT scan, but also on the basis of his surgery, he is not a candidate for lytics. /[id number] MERLYN/MARK MTDD
[2016-10-30] MEDS: Tamsulosin 0.4 MG Cap.ER PO SCH (20:15)
[2016-10-30] MEDS: FLUoxetine 10 MG Cap PO SCH (20:18)
[2016-10-30] MEDS: Lutein/Minerals/Vitamin C/Vitamin E Acetate Cap PO SCH (20:19)
[2016-10-30] MEDS: Multivitamin Tab PO SCH (20:28)
[2016-10-30] MEDS: Latanoprost 0.005% Ophth Soln 2.5 ML Bottle EYERT SCH (20:29)
[2016-10-31] MEDS: Cefepime 2 GM in Sodium Chloride 0.9% 50 ML IV SCH ×3 (00:30→16:24)
[2016-10-31] MEDS: Sodium Chloride 0.9% 10 ML Syringe FLUSH PRN ×7 (00:35→20:56)
[2016-10-31] MEDS: Levothyroxine 75 MCG Tab PO SCH (05:44)
[2016-10-31] MEDS: Potassium Chloride 20 MEQ Tab.ER PO SCH (08:44)
[2016-10-31] MEDS: Gabapentin 300 MG Cap PO SCH ×2 (08:44→20:54)
[2016-10-31] MEDS: Finasteride 5 MG Tab PO SCH (08:44)
[2016-10-31] MEDS: Hydrochlorothiazide 12.5 MG Cap PO SCH (08:44)
[2016-10-31] MEDS: traMADol 50 MG Tab PO PRN ×2 (08:47→17:16)
[2016-10-31] MEDS: Cholecalciferol (Vitamin D3) 1,000 Unit Tab PO SCH (08:47)
[2016-10-31] MEDS: Cyanocobalamin (Vitamin B12) 1,000 MCG Tab PO SCH (08:47)
[2016-10-31] MEDS: Sodium Chloride 0.9% 250 ML IV SCH (08:49)
[2016-10-31] MEDS: Aspirin 81 MG Tab.EC PO SCH (10:11)
[2016-10-31] MEDS: Acetaminophen 325 MG Tab PO PRN (14:53)
[2016-10-31] MEDS: Tamsulosin 0.4 MG Cap.ER PO SCH (20:53)
[2016-10-31] MEDS: FLUoxetine 10 MG Cap PO SCH (20:54)
[2016-10-31] MEDS: Lutein/Minerals/Vitamin C/Vitamin E Acetate Cap PO SCH (20:54)
[2016-10-31] MEDS: Latanoprost 0.005% Ophth Soln 2.5 ML Bottle EYERT SCH (20:55)
[2016-10-31] MEDS: Multivitamin Tab PO SCH (20:55)
[2016-11-01] MEDS: Cefepime 2 GM in Sodium Chloride 0.9% 50 ML IV SCH ×4 (00:36→23:52)
[2016-11-01] MEDS: traMADol 50 MG Tab PO PRN ×4 (00:38→23:58)
[2016-11-01] MEDS: Sodium Chloride 0.9% 10 ML Syringe FLUSH PRN ×2 (00:39→20:50)
[2016-11-01] MEDS: Levothyroxine 75 MCG Tab PO SCH (06:30)
[2016-11-01] MEDS: Aspirin 81 MG Tab.EC PO SCH (08:03)
[2016-11-01] MEDS: Potassium Chloride 20 MEQ Tab.ER PO SCH (08:04)
[2016-11-01] MEDS: Hydrochlorothiazide 12.5 MG Cap PO SCH (08:04)
[2016-11-01] MEDS: Finasteride 5 MG Tab PO SCH (08:05)
[2016-11-01] MEDS: Cholecalciferol (Vitamin D3) 1,000 Unit Tab PO SCH (08:06)
[2016-11-01] MEDS: Cyanocobalamin (Vitamin B12) 1,000 MCG Tab PO SCH (09:23)
[2016-11-01] MEDS: Acetaminophen 325 MG Tab PO PRN (18:57)
[2016-11-01] MEDS: Tamsulosin 0.4 MG Cap.ER PO SCH (20:10)
[2016-11-01] MEDS: Gabapentin 300 MG Cap PO SCH (20:11)
[2016-11-01] MEDS: Lutein/Minerals/Vitamin C/Vitamin E Acetate Cap PO SCH (20:12)
[2016-11-01] MEDS: Latanoprost 0.005% Ophth Soln 2.5 ML Bottle EYERT SCH (20:13)
[2016-11-01] MEDS: FLUoxetine 10 MG Cap PO SCH (20:13)
[2016-11-01] MEDS: Multivitamin Tab PO SCH (20:13)
[2016-11-01] MEDS: Sodium Chloride 0.9% 250 ML IV SCH (20:40)
[2016-11-02] MEDS: Levothyroxine 75 MCG Tab PO SCH (05:34)
[2016-11-02] MEDS: Cefepime 2 GM in Sodium Chloride 0.9% 50 ML IV SCH ×2 (08:27→15:45)
[2016-11-02] MEDS: Finasteride 5 MG Tab PO SCH (08:42)
[2016-11-02] MEDS: Aspirin 81 MG Tab.EC PO SCH (08:42)
[2016-11-02] MEDS: Hydrochlorothiazide 12.5 MG Cap PO SCH (08:42)
[2016-11-02] MEDS: Potassium Chloride 20 MEQ Tab.ER PO SCH (08:42)
[2016-11-02] MEDS: Cyanocobalamin (Vitamin B12) 1,000 MCG Tab PO SCH (08:43)
[2016-11-02] MEDS: Cholecalciferol (Vitamin D3) 1,000 Unit Tab PO SCH (08:43)
[2016-11-02] MEDS: Ketorolac 15 MG/ML SDV IVPUSH PRN ×2 (09:47→20:40)
[2016-11-02] MEDS: Sodium Chloride 0.9% 10 ML Syringe FLUSH PRN ×5 (09:48→21:48)
[2016-11-02] MEDS: Acetaminophen 325 MG Tab PO PRN (13:26)
[2016-11-02] MEDS: traMADol 50 MG Tab PO PRN (21:38)
[2016-11-02] MEDS: Tamsulosin 0.4 MG Cap.ER PO SCH (21:42)
[2016-11-02] MEDS: Gabapentin 300 MG Cap PO SCH (21:43)
[2016-11-02] MEDS: Multivitamin Tab PO SCH (21:44)
[2016-11-02] MEDS: FLUoxetine 10 MG Cap PO SCH (21:44)
[2016-11-02] MEDS: Lutein/Minerals/Vitamin C/Vitamin E Acetate Cap PO SCH (21:44)
[2016-11-02] MEDS: Latanoprost 0.005% Ophth Soln 2.5 ML Bottle EYERT SCH (21:45)
[2016-11-02] MEDS: Sodium Chloride 0.9% 250 ML IV SCH (22:10)
[2016-11-03] MEDS: Cefepime 2 GM in Sodium Chloride 0.9% 50 ML IV SCH ×3 (00:26→15:56)
[2016-11-03] MEDS: Ketorolac 15 MG/ML SDV IVPUSH PRN (02:29)
[2016-11-03] MEDS: Levothyroxine 75 MCG Tab PO SCH (05:44)
[2016-11-03] MEDS: traMADol 50 MG Tab PO PRN ×2 (05:45→11:57)
[2016-11-03] MEDS: Hydrochlorothiazide 12.5 MG Cap PO SCH (08:52)
[2016-11-03] MEDS: Finasteride 5 MG Tab PO SCH (08:52)
[2016-11-03] MEDS: Aspirin 81 MG Tab.EC PO SCH (08:53)
[2016-11-03] MEDS: Cyanocobalamin (Vitamin B12) 1,000 MCG Tab PO SCH (08:53)
[2016-11-03] MEDS: Cholecalciferol (Vitamin D3) 1,000 Unit Tab PO SCH (08:53)
[2016-11-03] MEDS ORDERED: Magnesium Oxide 400 MG Tab PO SCH (09:00)
[2016-11-03] MEDS ORDERED: Potassium Chloride 20 MEQ Tab.ER PO SCH (09:00)
--- NOTE | 2016-11-03 09:13 | PN ---
DATE SEEN: 11/03/2016 CHIEF COMPLAINT: Confusion. HISTORY OF PRESENT ILLNESS: An 86-year-old male who appears to have confusion mostly in the evenings. He had a laminectomy on 10/04/2016 and has had a skin infection thought to be MSSA around the surgical site. An MRI done at the hospital on revealed possible forming abscesses. He is currently on the advise of Infectious Disease on cefepime and vancomycin. He has had no fever, but he notes to be catatonic mostly in the evenings and confused. He had similar symptoms since last week and a CT done on the did not show any acute changes. REVIEW OF SYSTEMS: No decrease in oral intake, this morning, he denies any pain. MEDICATIONS: He is currently on an SSRI, Prozac 10 mg a day, and also on gabapentin 300 mg at night. All other medications please see the nurse's notes. PHYSICAL EXAMINATION: VITAL SIGNS: His blood pressure is 164/87, pulse is 120, and temperature 97.0. EARS, NOSE, AND THROAT: Negative. CHEST: Clear. CARDIOVASCULAR: Exam is normal. MENTAL STATUS: He answered questions appropriately this morning. LABORATORY DATA: Potassium is 2.9, phosphorus is 1.7, and magnesium 1.6. ESR is 36. White cell count is normal. Sodium is 131. IMPRESSION: 1. Alteration of mental status (ing). 2. Hypophosphatemia. 3. Hypomagnesemia. 4. Hypokalemia. 5. Hyponatremia. 6. Status post cervical laminectomy. PLAN: My plan is to continue the current medications; however, I will increase the potassium replacement to b.i.d. and also replace magnesium with magnesium oxide and phosphorus with K-Phos. We will continue monitoring and if his symptoms get worse, I will consult with the Neurosurgical Team in [place] or Infectious Disease to see if he needs further care. /[id number] TING/MARK
[2016-11-03] MEDS: Potassium Phosphate,Monobasic 500 MG Tab.Solu PO SCH ×2 (10:08→13:03)
[2016-11-03] MEDS: Sodium Chloride 0.9% 10 ML Syringe FLUSH PRN ×2 (10:21→15:53)
[2016-11-03 15:45] VITALS: BP 136/60
--- NOTE | 2016-11-04 04:11 | DISCH ---
DISCHARGE DATE: 11/03/2016 REASON FOR ADMISSION: 1. Status post laminectomy. 2. Surgical wound infection. 3. Hypertension. 4. History of myelopathy and spinal stenosis. 5. Hypothyroidism. REASON FOR TRANSFER: 1. Fever. 2. Alteration of mental status. 3. Surgical wound abscess. 4. Status post cervical spine laminectomy. 5. BPH. 6. Hypertension. 7. Electrolyte imbalance included his hypophosphatemia, hypokalemia, and hypomagnesemia. CONSULTATIONS: Physical and Occupational Therapy. BRIEF HISTORY: Mr. Thibodeaux is 86. He was brought in for rehab to swing bed on the . Over the course of the stay, he developed severe confusion, catatonia, urinary retention, and was noted to be clinically deteriorating. Pain control was attempted. He was catheterized and other conservative measures were reviewed for the cause of the delirium. CT of the head and neck, angiogram was performed to rule out stroke. He continued to deteriorate and fever developed on the day of discharge and transfer. As such, after discussion with the family, decision was made to send the patient to [place] for inpatient treatment, evaluation for the source of infection and confusion. Of note, he was on vancomycin and cefepime through the PICC line as ordered by Infectious Disease. Please note that I spent more than 45 minutes in the discharge and transfer of this patient. /[id number] TING/MARK
== END 2016-11-03 16:32 | DRG 863 ==
LOC: FB.MS 12:40
PROVIDERS: ADMIT Family Medicine; ATTEND Family Medicine
DX: T81.4XXA Infection following a procedure, initial encounter (principal); E87.1 Hypo-osmolality and hyponatremia; F05 Delirium due to known physiological condition; F20.2 Catatonic schizophrenia; Z98.890 Other specified postprocedural states; I10 Essential (primary) hypertension; E03.9 Hypothyroidism, unspecified; H40.9 Unspecified glaucoma; H35.30 Unspecified macular degeneration; N40.0 Benign prostatic hyperplasia without lower urinary tract symptoms; M19.90 Unspecified osteoarthritis, unspecified site; E53.8 Deficiency of other specified B group vitamins; Z87.891 Personal history of nicotine dependence; E87.6 Hypokalemia; E83.42 Hypomagnesemia; E83.39 Other disorders of phosphorus metabolism; R50.9 Fever, unspecified; R41.82 Altered mental status, unspecified; R33.9 Retention of urine, unspecified; Z79.2 Long term (current) use of antibiotics
CPT/HCPCS: 36415; 70450; 70498; 80053; 80202; 82565; 83735; 84100; 84450; 85025; 85651; 86140; 97110-GO; 97110-GP; 97116-GP; 97161-GP; 97166-GO; 97530-GO; 97530-GO-KX; 97530-GP; 97535-GO; A9270-GY; J0692; J1642; J1885; J3370; J7050; Q9967

== ENCOUNTER 2016-11-12 11:05 | Inpatient (IN) | payer MEDICARE, OTHER ==
[2016-11-12] MEDS ORDERED: PEG EYEBOTH PRN (14:48)
[2016-11-12] MEDS ORDERED: Bisacodyl 10 MG Supp RECTAL PRN (14:48)
[2016-11-12] MEDS ORDERED: PROPYLENE GLYCOL EYEBOTH PRN (14:48)
[2016-11-12] MEDS ORDERED: Pantoprazole 40 MG Tab.CR PO PRN (15:00)
[2016-11-12] MEDS ORDERED: Acetaminophen Soln 650 MG/20.3 ML UD Cup PO PRN (15:07)
[2016-11-12] MEDS ORDERED: Clobetasol 0.05% Crm 15 GM Tube TOP PRN (15:15)
[2016-11-12] MEDS: Cefepime 2 GM in Sodium Chloride 0.9% 50 ML IV SCH ×2 (15:20→22:02)
[2016-11-12] MEDS: Potassium Phosphate,Mb-Db/Sodium Phosphate,Mb-Db Packet PO SCH ×2 (16:48→20:03)
--- NOTE | 2016-11-12 18:23 | PCM.HP ---
H&P History of Present Illness - General Date of Service: 11/12/16 Admit Problem/Dx: Admission Diagnosis/Problem Admission Diagnosis/Problem Wound cellulitis Source of Information: Patient, Provider - History of Present Illness Initial Comments - Free Text/Narative: This is an 86-year-old male patient that originally had a neck surgery and was here for swing bed. He's been sent to [place] twice for infections. This time the send him back on IV antibiotics. He is doing better and he has some problems with constipation in [place]. They placed a catheter get he has decreased urinary output. Discuss with a doctor for [place] and they wanted it removed probably tomorrow. Patient states she's feeling good. He has no fevers, chills, drainage from the wound. He denies chest pain or shortness of breath. Neck Pain Score (Numeric/FACES): 4 - Related Data Allergies/Adverse Reactions: Allergies Allergy/AdvReac Type Severity Reaction Status Date / Time No Known Allergies Allergy Verified 11/12/16 14:03 Home Medications: Home Meds Cholecalciferol (Vitamin D3) [Vitamin D3] 2,000 unit PO DAILY 10/07/16 [History] Finasteride 5 mg PO DAILY 10/07/16 [History] Latanoprost [Xalatan 0.005% Ophth Soln] 1 drop EYERT BEDTIME 10/07/16 [History] Levothyroxine 37.5 mcg PO DAILY 10/07/16 [History] Lutein 6 mg PO BEDTIME 10/07/16 [History] Multivitamin [Daily Alee] 1 tab PO BEDTIME 10/07/16 [History] Omeprazole 20 mg PO DAILY PRN 10/07/16 [History] Propylene Glycol/Peg 400 [Systane 0.3-0.4% Eye Drops] 1 drop EYEBOTH BID PRN 11/15 [History] Sennosides/Docusate Sodium [Senna-S] 1 tab PO BID PRN 10/07/16 [History] Tamsulosin [Flomax] 0.8 mg PO BEDTIME 10/07/16 [History] Triamcinolone Acetonide [Nasacort] 1 spray NASBOTH BID PRN 10/07/16 [History] Ascorbate Calcium [Vitamin C] 250 mg PO DAILY PRN 10/27/16 [History] Aspirin [Halfprin] 81 mg PO DAILY 10/27/16 [History] Cyanocobalamin (Vitamin B-12) [B-12] 1,000 mcg PO DAILY 10/27/16 [History] FLUoxetine [PROzac] 10 mg PO BEDTIME 10/27/16 [History] Lutein/Min/Vit C/Vit E Acetate [Ocuvite Lutein] 1 cap PO BEDTIME 10/27/16 [ History] Menthol [Perform Pain Reliever] 1 applic TP QID PRN 10/27/16 [History] Acetaminophen [Tylenol 160 MG/5 ML Liq] 650 mg PO Q6H PRN 11/12/16 [History] Bisacodyl 10 mg RECTAL DAILY PRN 11/12/16 [History] Clobetasol Propionate [Temovate] 1 applic TOP BID PRN 11/12/16 [History] LORazepam 0.5 mg PO QID PRN 11/12/16 [History] NaPh,Mb-Db/K Ph,MB-DB [Phos-NaK Powder] 1 packet PO TID 11/12/16 [History] amLODIPine [Norvasc] 5 mg PO DAILY 11/12/16 [History] Past Medical History HEENT History: Reports: Cataract, Glaucoma, Macular Degeneration Cardiovascular History: Reports: Hypertension Gastrointestinal History: Reports: GI Bleed, Other (See Below) Other Gastrointestinal History: Acid reflux Genitourinary History: Reports: BPH, Other (See Below) Other Genitourinary History: urinary retantion Musculoskeletal History: Reports: Arthritis, Other (See Below) Other Musculoskeletal History: Arthritis in back, spine and right thumb. Neurological History: Reports: Other (See Below) Other Neuro History: more forgetful at night Endocrine/Metabolic History: Reports: Hypothyroidism Hematologic History: Reports: B12 Deficiency Dermatologic History: Reports: Eczema - Infectious Disease History Infectious Disease History: Reports: None - Past Surgical History HEENT Surgical History: Reports: Other (See Below) Other HEENT Surgeries/Procedures: Laminectomy 10/04/16. Cardiovascular Surgical History: Reports: None GI Surgical History: Reports: Colonoscopy, EGD Male Surgical History: Reports: Kidney Stone Extraction Endocrine Surgical History: Reports: None Neurological Surgical History: Reports: Laminectomy Musculoskeletal Surgical History: Reports: Other (See Below) Other Musculoskeletal Surgeries/Procedures:: cervical laminectomy approx 1 month ago Social & Family History - Family History Family Medical History: Noncontributory HEENT: Reports: Macular Degeneration Other HEENT Family History: father side Cardiac: Reports: Heart Failure - Tobacco Use Smoking Status *Q: Former Smoker Used Tobacco, but Quit: No Month Tobacco Last Used: ? Second Hand Smoke Exposure: No - Caffeine Use Caffeine Use: Reports: Coffee - Alcohol Use Days Per Week of Alcohol Use: 1 Number of Drinks Per Day: 0 Total Drinks Per Week: 0 - Recreational Drug Use Recreational Drug Use: No H&P Review of Systems - Review of Systems: Review Of Systems: See Below General: Reports: No Symptoms HEENT: Reports: No Symptoms Pulmonary: Reports: No Symptoms Cardiovascular: Reports: No Symptoms Gastrointestinal: Reports: No Symptoms Genitourinary: Reports: No Symptoms Musculoskeletal: Reports: Neck Pain Skin: Reports: No Symptoms Psychiatric: Reports: No Symptoms Neurological: Reports: Weakness, Gait Disturbance Hematologic/Lymphatic: Reports: No Symptoms Immunologic: Reports: No Symptoms Exam - Exam Exam: See Below - Vital Signs Vital Signs: Last Vital Signs Temp 98.6 F 11/12/16 12:50 Pulse 85 11/12/16 12:50 Resp 18 11/12/16 12:50 BP 134/66 11/12/16 12:50 Pulse Ox 90 L 11/12/16 12:58 Weight: 136 lb 1.6 oz - Exam General: Alert, Oriented, Cooperative HEENT: Conjunctiva Clear, Hearing Intact, Mucosa Moist & [place], Posterior Pharynx Clear, TMs Clear Neck: Supple, Trachea Midline, 2 Lungs: Clear to Auscultation, Normal Respiratory Effort Cardiovascular: Regular Rate, Regular Rhythm. No: Systolic Murmur, Diastolic Murmur GI/Abdominal Exam: Normal Bowel Sounds, Soft, Non-Tender, No Organomegaly, No Distention Extremities: Normal Inspection, No Pedal Edema Skin: Incision (Healed up nicely without any erythema or drainage.) Neurological: Normal Speech, Normal Tone Neuro Extensive - Mental Status: Alert, Oriented x3, Normal Mood/Affect Psychiatric: Alert, Normal Affect, Normal Mood *Q Meaningful Use (ADM) - VTE *Q VTE Criteria *Q: - Stroke *Q Stroke Criteria *Q: - AMI *Q AMI Criteria *Q: - Problem List (1) Wound infection after surgery SNOMED Code(s): 03357641, [id number] ICD Code: T81.4XXA - INFECTION FOLLOWING A PROCEDURE, INITIAL ENCOUNTER Status: Acute Current Visit: No Problem List Initiated/Reviewed/Updated: Yes Orders Last 24hrs: Active Orders 24 hr Category Date Time Status Patient Status [ADT] Routine ADT 11/12/16 12:58 Active Height and Weight [RC] WEEKLY Care 11/12/16 12:58 Active Oxygen Therapy [RC] PRN Care 11/12/16 12:58 Active Up With Assistance [RC] ASDIRECTED Care 11/12/16 12:58 Active VTE/DVT Education [RC] Per Unit Routine Care 11/12/16 12:58 Active Vital Signs [RC] 08 Care 11/12/16 12:58 Active OT Evaluation and Treatment [CONS] Routine Cons 11/12/16 12:58 Active PT Evaluation and Treatment [CONS] Routine Cons 11/12/16 12:58 Active Regular Diet [DIET] Diet 11/12/16 Dinner Active CBC WITH AUTO DIFF [HEME] WEEKLY Lab 11/16/16 06:00 Ordered CBC WITH AUTO DIFF [HEME] WEEKLY Lab 11/23/16 06:00 Ordered CBC WITH AUTO DIFF [HEME] WEEKLY Lab 11/30/16 06:00 Ordered CBC WITH AUTO DIFF [HEME] WEEKLY Lab 12/07/16 06:00 Ordered CBC WITH AUTO DIFF [HEME] WEEKLY Lab 12/14/16 06:00 Ordered CREATININE W/GFR [CHEM] WEEKLY Lab 11/16/16 06:00 Ordered CREATININE W/GFR [CHEM] WEEKLY Lab 11/19/16 06:00 Ordered CREATININE W/GFR [CHEM] WEEKLY Lab 11/23/16 06:00 Ordered CREATININE W/GFR [CHEM] WEEKLY Lab 11/26/16 06:00 Ordered CREATININE W/GFR [CHEM] WEEKLY Lab 11/30/16 06:00 Ordered CREATININE W/GFR [CHEM] WEEKLY Lab 12/03/16 06:00 Ordered CREATININE W/GFR [CHEM] WEEKLY Lab 12/07/16 06:00 Ordered CREATININE W/GFR [CHEM] WEEKLY Lab 12/10/16 06:00 Ordered CREATININE W/GFR [CHEM] WEEKLY Lab 12/14/16 06:00 Ordered CRP [C-REACTIVE PROTEIN] [CHEM] WEEKLY Lab 11/16/16 06:00 Ordered CRP [C-REACTIVE PROTEIN] [CHEM] WEEKLY Lab 11/23/16 06:00 Ordered CRP [C-REACTIVE PROTEIN] [CHEM] WEEKLY Lab 11/30/16 06:00 Ordered CRP [C-REACTIVE PROTEIN] [CHEM] WEEKLY Lab 12/07/16 06:00 Ordered CRP [C-REACTIVE PROTEIN] [CHEM] WEEKLY Lab 12/14/16 06:00 Ordered Acetaminophen [Tylenol] Med 11/12/16 15:07 Active 650 mg PO Q6H PRN Ascorbic Acid [Vitamin C] Med 11/13/16 09:00 Active 250 mg PO DAILY PRN Aspirin [Halfprin] Med 11/13/16 09:00 Active 81 mg PO DAILY Bisacodyl [Dulcolax] Med 11/12/16 14:48 Active 10 mg RECTAL DAILY PRN Cefepime [Maxipime] 2 gm Med 11/12/16 14:00 Active Sodium Chloride 0.9% [Normal Saline] 50 ml IV Q8H Cholecalciferol (Vitamin D3) [Vitamin D3] Med 11/13/16 09:00 Active 2,000 units PO DAILY Clobetasol [Clobetasol Propionate 0.05%] Med 11/12/16 15:15 Active 0 gm TOP BID PRN Cyanocobalamin (Vitamin B12) [Vitamin B12] Med 11/13/16 09:00 Active 1,000 mcg PO DAILY Docusate Sodium/Sennosides [Senna Plus] Med 11/12/16 14:48 Active 1 tab PO BID PRN FLUoxetine [PROzac] Med 11/12/16 21:00 Active 10 mg PO BEDTIME Finasteride [Proscar] Med 11/13/16 09:00 Active 5 mg PO DAILY Fluticasone Propionate [Flonase] Med 11/13/16 09:00 Active 0 gm NASBOTH DAILY PRN LORazepam [Ativan] Med 11/12/16 14:48 Active 0.5 mg PO QID PRN Latanoprost [Xalatan 0.005% Ophth Soln] Med 11/12/16 21:00 Active 0 ml EYERT BEDTIME Levothyroxine Med 11/13/16 06:00 Active 37.5 mcg PO DAILY@0600 Lutein [Lutein] Med 11/12/16 21:00 Pending 6 mg PO BEDTIME Lutein/Min/Vit C/Vit E Acetate [Ocuvite Lutein] Med 11/12/16 21:00 Active 1 each PO BEDTIME Menthol [Perform Pain Reliever] Med 11/12/16 15:00 Active 0 ml TP QID PRN Multivitamins [Tab-A-Alee] Med 11/12/16 21:00 Active 1 tab PO BEDTIME NaPh,Mb-Db/K Ph,MB-DB [Phos-NaK Powder] Med 11/12/16 16:00 Active 1 each PO TID PEG 400/Propylene Glycol [Systane Lubricant] Med 11/12/16 14:48 Active 0 ml EYEBOTH BID PRN Pantoprazole [ProTONIX] Med 11/12/16 15:00 Active 40 mg PO DAILY PRN Sodium Chloride 0.9% [Normal Saline] 250 ml Med 11/12/16 15:15 Active IV ASDIRECTED Tamsulosin [Flomax] Med 11/12/16 21:00 Active 0.8 mg PO BEDTIME Vancomycin 1,000 mg Med 11/12/16 16:00 Active Sodium Chloride 0.9% [Normal Saline] 250 ml IV Q12H Vancomycin Pharmacy to Dose [Pharmacy to Dose - Med 11/12/16 15:45 Pending Vancomycin] See Dose Instructions .XX ASDIRECTED amLODIPine [Norvasc] Med 11/13/16 09:00 Active 5 mg PO DAILY Sequential Compression Device [OM.PC] Per Unit Routine Oth 11/12/16 13:00 Ordered Resuscitation Status Routine Resus Stat 11/12/16 12:58 Ordered Medication Orders Acetaminophen (Tylenol) 650 mg PO Q6H PRN PRN Reason: mild pain Last Admin: 11/12/16 16:05 Dose: 650 mg Amlodipine Besylate (Norvasc) 5 mg PO DAILY AILYN Ascorbic Acid (Vitamin C) 250 mg PO DAILY PRN PRN Reason: URI SYMPTOMS Aspirin (Halfprin) 81 mg PO DAILY AILYN Bisacodyl (Dulcolax) 10 mg RECTAL DAILY PRN PRN Reason: Constipation Cholecalciferol (Vitamin D3) 2,000 units PO DAILY AILYN Clobetasol Propionate (Clobetasol Propionate 0.05%) 0 gm TOP BID PRN PRN Reason: RASH/ITCHING Cyanocobalamin (Vitamin B12) 1,000 mcg PO DAILY AILYN Finasteride (Proscar) 5 mg PO DAILY AILYN Fluoxetine HCl (Prozac) 10 mg PO BEDTIME AILYN Fluticasone Propionate (Flonase) 0 gm NASBOTH DAILY PRN PRN Reason: RHINITIS Cefepime HCl 2 gm/ Sodium (Chloride) 50 mls @ 100 mls/hr IV Q8H [facility] Stop: 12/21/16 23:00 Last Admin: 11/12/16 15:20 Dose: 100 mls/hr Vancomycin HCl 1,000 mg/ (Sodium Chloride) 250 mls @ 250 mls/hr IV Q12H AILYN Stop: 12/21/16 23:00 Last Admin: 11/12/16 16:05 Dose: 250 mls/hr Sodium Chloride (Normal Saline) 250 mls @ 100 mls/hr IV ASDIRECTED AILYN Latanoprost (Xalatan 0.005% Ophth Soln) 0 ml EYERT BEDTIME AILYN Levothyroxine Sodium (Levothyroxine) 37.5 mcg PO DAILY@0600 AILYN Lorazepam (Ativan) 0.5 mg PO QID PRN PRN Reason: Anxiety/agitation Menthol (Perform Pain Reliever) 0 ml TP QID PRN PRN Reason: PAIN Multivitamins/Minerals/Vitamin C (Tab-A-Alee) 1 tab PO BEDTIME [facility] Non-Formulary Medication (Lutein [Lutein]) 6 mg PO BEDTIME [facility] Pantoprazole Sodium (Protonix) 40 mg PO DAILY PRN PRN Reason: HEARTBURN Potassium Phos/Sodium Phos (Phos-Nak Powder) 1 each PO TID [facility] Stop: 11/15/16 09:01 Last Admin: 11/12/16 16:48 Dose: 1 packet Propylene Glycol (Systane Lubricant) 0 ml EYEBOTH BID PRN PRN Reason: Dry Eyes Senna/Docusate Sodium (Senna Plus) 1 tab PO BID PRN PRN Reason: Constipation Tamsulosin HCl (Flomax) 0.8 mg PO BEDTIME AILYN Vancomycin HCl (Pharmacy To Dose - Vancomycin) 0 dose .XX ASDIRECTED [facility] Vit C/Vit E/Zinc/Copper/Lutein (Ocuvite Lutein) 1 each PO BEDTIME [facility] Assessment/Plan Comment:: . Admit to swing bed. 2. The doctor from [place] called me and stated that they're going to try swing bed. If he does not do well then we switch to hospice. 3. IV antibiotics to be managed by pharmacy. 4. Regular diet. 5. PT/OT. 6. DC Roman catheter in the a.m.
[2016-11-12] MEDS: Lutein/Minerals/Vitamin C/Vitamin E Acetate Cap PO SCH (20:03)
[2016-11-12] MEDS: Tamsulosin 0.4 MG Cap.ER PO SCH (20:04)
[2016-11-12] MEDS: Multivitamin Tab PO SCH (20:04)
[2016-11-12] MEDS: FLUoxetine 10 MG Cap PO SCH (20:04)
[2016-11-12] MEDS: Latanoprost 0.005% Ophth Soln 2.5 ML Bottle *PTOM EYERT SCH (20:05)
[2016-11-12] MEDS ORDERED: Non-Formulary Medication 1 Each (Lutein [Lutein] 6 MG) PO SCH (21:00)
[2016-11-13] MEDS: Acetaminophen 325 MG Tab PO PRN ×3 (02:42→18:42)
[2016-11-13] MEDS: LORazepam 0.5 MG Tab PO PRN ×2 (02:42→22:10)
[2016-11-13] MEDS: Cefepime 2 GM in Sodium Chloride 0.9% 50 ML IV SCH ×3 (05:39→21:43)
[2016-11-13] MEDS: Levothyroxine 75 MCG Tab PO SCH (05:41)
[2016-11-13] MEDS ORDERED: Fluticasone Propionate Nasal Spray 16 GM Bottle *PTOM NASBOTH PRN (09:00)
[2016-11-13] MEDS ORDERED: Ascorbic Acid 500 MG Tab PO PRN (09:00)
[2016-11-13] MEDS: Aspirin 81 MG Tab.EC PO SCH (09:19)
[2016-11-13] MEDS: Potassium Phosphate,Mb-Db/Sodium Phosphate,Mb-Db Packet PO SCH ×3 (09:19→21:57)
[2016-11-13] MEDS: amLODIPine 5 MG Tab PO SCH (09:19)
[2016-11-13] MEDS: Finasteride 5 MG Tab PO SCH (09:20)
[2016-11-13] MEDS: Cholecalciferol (Vitamin D3) 1,000 Unit Tab PO SCH (09:20)
[2016-11-13] MEDS: Cyanocobalamin (Vitamin B12) 1,000 MCG Tab PO SCH (09:20)
[2016-11-13] MEDS: Sodium Chloride 0.9% 250 ML IV SCH (14:30)
[2016-11-13] MEDS: Sodium Chloride 0.9% 10 ML Syringe FLUSH PRN ×7 (14:30→22:44)
[2016-11-13] MEDS: Tamsulosin 0.4 MG Cap.ER PO SCH (21:56)
[2016-11-13] MEDS: Lutein/Minerals/Vitamin C/Vitamin E Acetate Cap PO SCH (21:56)
[2016-11-13] MEDS: FLUoxetine 10 MG Cap PO SCH (21:57)
[2016-11-13] MEDS: Latanoprost 0.005% Ophth Soln 2.5 ML Bottle *PTOM EYERT SCH (21:58)
[2016-11-13] MEDS: Multivitamin Tab PO SCH (21:58)
[2016-11-14] MEDS: Cefepime 2 GM in Sodium Chloride 0.9% 50 ML IV SCH ×3 (05:08→21:16)
[2016-11-14] MEDS: Levothyroxine 75 MCG Tab PO SCH (05:12)
[2016-11-14] MEDS: Sodium Chloride 0.9% 10 ML Syringe FLUSH PRN ×7 (07:32→22:16)
[2016-11-14] MEDS: amLODIPine 5 MG Tab PO SCH (08:40)
[2016-11-14] MEDS: Potassium Phosphate,Mb-Db/Sodium Phosphate,Mb-Db Packet PO SCH ×3 (08:40→21:13)
[2016-11-14] MEDS: Cholecalciferol (Vitamin D3) 1,000 Unit Tab PO SCH (08:41)
[2016-11-14] MEDS: Finasteride 5 MG Tab PO SCH (08:41)
[2016-11-14] MEDS: Cyanocobalamin (Vitamin B12) 1,000 MCG Tab PO SCH (08:42)
[2016-11-14] MEDS: Acetaminophen 325 MG Tab PO PRN ×3 (08:45→21:15)
[2016-11-14] MEDS ORDERED: QUEtiapine 25 MG Tab PO ONE (10:30)
[2016-11-14] MEDS: Sodium Chloride 0.9% 250 ML IV SCH (14:15)
[2016-11-14] MEDS: Tamsulosin 0.4 MG Cap.ER PO SCH (21:12)
[2016-11-14] MEDS: Lutein/Minerals/Vitamin C/Vitamin E Acetate Cap PO SCH (21:13)
[2016-11-14] MEDS: Multivitamin Tab PO SCH (21:14)
[2016-11-14] MEDS: Latanoprost 0.005% Ophth Soln 2.5 ML Bottle *PTOM EYERT SCH (21:14)
[2016-11-14] MEDS: FLUoxetine 10 MG Cap PO SCH (21:14)
[2016-11-15] MEDS: Cefepime 2 GM in Sodium Chloride 0.9% 50 ML IV SCH ×3 (05:01→22:06)
[2016-11-15] MEDS: Levothyroxine 75 MCG Tab PO SCH (05:06)
[2016-11-15] MEDS: Sodium Chloride 0.9% 10 ML Syringe FLUSH PRN ×5 (07:20→22:52)
[2016-11-15] MEDS: Acetaminophen 325 MG Tab PO PRN ×2 (07:39→13:19)
[2016-11-15] MEDS ORDERED: Haloperidol Lactate 5 MG/ML SDV IM PRN (07:40)
[2016-11-15] MEDS: amLODIPine 5 MG Tab PO SCH (08:38)
[2016-11-15] MEDS: Finasteride 5 MG Tab PO SCH (08:39)
[2016-11-15] MEDS: Potassium Phosphate,Mb-Db/Sodium Phosphate,Mb-Db Packet PO SCH (08:39)
[2016-11-15] MEDS: Cyanocobalamin (Vitamin B12) 1,000 MCG Tab PO SCH (08:39)
[2016-11-15] MEDS: Cholecalciferol (Vitamin D3) 1,000 Unit Tab PO SCH (08:39)
[2016-11-15] MEDS: Sodium Chloride 0.9% 250 ML IV SCH (13:30)
[2016-11-15] MEDS ORDERED: QUEtiapine 25 MG Tab ONE (20:40)
[2016-11-15] MEDS: Latanoprost 0.005% Ophth Soln 2.5 ML Bottle *PTOM EYERT SCH (20:49)
[2016-11-15] MEDS: Tamsulosin 0.4 MG Cap.ER PO SCH (20:50)
[2016-11-15] MEDS: FLUoxetine 10 MG Cap PO SCH (20:50)
[2016-11-15] MEDS: Multivitamin Tab PO SCH (20:50)
[2016-11-15] MEDS: Lutein/Minerals/Vitamin C/Vitamin E Acetate Cap PO SCH (20:50)
[2016-11-15] MEDS ORDERED: QUEtiapine 25 MG Tab PO SCH (21:00)
[2016-11-15] MEDS: QUEtiapine 50 MG Tab.SR PO SCH (21:06)
[2016-11-16] MEDS: Cefepime 2 GM in Sodium Chloride 0.9% 50 ML IV SCH ×3 (05:35→22:18)
[2016-11-16] MEDS: Levothyroxine 75 MCG Tab PO SCH (06:29)
[2016-11-16] MEDS: Sodium Chloride 0.9% 10 ML Syringe FLUSH PRN ×5 (08:05→22:18)
[2016-11-16] MEDS: Acetaminophen 325 MG Tab PO PRN (09:16)
[2016-11-16] MEDS: Finasteride 5 MG Tab PO SCH (09:18)
[2016-11-16] MEDS: Cholecalciferol (Vitamin D3) 1,000 Unit Tab PO SCH (09:18)
[2016-11-16] MEDS: Cyanocobalamin (Vitamin B12) 1,000 MCG Tab PO SCH (09:18)
[2016-11-16] MEDS: amLODIPine 5 MG Tab PO SCH (09:18)
[2016-11-16] MEDS: Sodium Chloride 0.9% 250 ML IV SCH (14:14)
[2016-11-16] MEDS: QUEtiapine 50 MG Tab.SR PO SCH (20:52)
[2016-11-16] MEDS: Lutein/Minerals/Vitamin C/Vitamin E Acetate Cap PO SCH (20:52)
[2016-11-16] MEDS: Tamsulosin 0.4 MG Cap.ER PO SCH (20:53)
[2016-11-16] MEDS: Latanoprost 0.005% Ophth Soln 2.5 ML Bottle *PTOM EYERT SCH (20:53)
[2016-11-16] MEDS: Multivitamin Tab PO SCH (20:53)
[2016-11-17] MEDS: Levothyroxine 75 MCG Tab PO SCH (05:46)
[2016-11-17] MEDS: Cefepime 2 GM in Sodium Chloride 0.9% 50 ML IV SCH ×3 (05:46→21:45)
[2016-11-17] MEDS: Acetaminophen 325 MG Tab PO PRN ×3 (05:47→19:56)
[2016-11-17] MEDS: Sodium Chloride 0.9% 10 ML Syringe FLUSH PRN ×3 (08:04→18:00)
[2016-11-17] MEDS: Finasteride 5 MG Tab PO SCH (09:16)
[2016-11-17] MEDS: amLODIPine 5 MG Tab PO SCH (09:16)
[2016-11-17] MEDS: Cholecalciferol (Vitamin D3) 1,000 Unit Tab PO SCH (09:16)
[2016-11-17] MEDS: Cyanocobalamin (Vitamin B12) 1,000 MCG Tab PO SCH (09:16)
[2016-11-17] MEDS: Sodium Chloride 0.9% 250 ML IV SCH (14:19)
[2016-11-17] MEDS: Lutein/Minerals/Vitamin C/Vitamin E Acetate Cap PO SCH (20:00)
[2016-11-17] MEDS: Tamsulosin 0.4 MG Cap.ER PO SCH (20:00)
[2016-11-17] MEDS: QUEtiapine 50 MG Tab.SR PO SCH (20:00)
[2016-11-17] MEDS: Multivitamin Tab PO SCH (20:00)
[2016-11-17] MEDS: FLUoxetine 10 MG Cap PO SCH (20:00)
[2016-11-17] MEDS: Latanoprost 0.005% Ophth Soln 2.5 ML Bottle *PTOM EYERT SCH (20:01)
[2016-11-18] MEDS: Levothyroxine 75 MCG Tab PO SCH (05:11)
[2016-11-18] MEDS: Cefepime 2 GM in Sodium Chloride 0.9% 50 ML IV SCH ×3 (05:21→21:30)
[2016-11-18] MEDS: Sodium Chloride 0.9% 10 ML Syringe FLUSH PRN ×4 (07:30→22:20)
[2016-11-18] MEDS: Cyanocobalamin (Vitamin B12) 1,000 MCG Tab PO SCH (08:31)
[2016-11-18] MEDS: Finasteride 5 MG Tab PO SCH (08:31)
[2016-11-18] MEDS: Cholecalciferol (Vitamin D3) 1,000 Unit Tab PO SCH (08:31)
[2016-11-18] MEDS: amLODIPine 5 MG Tab PO SCH (08:31)
--- NOTE | 2016-11-18 11:00 | PN ---
DATE SEEN: 11/18/2016 CHIEF COMPLAINT: Rash. HISTORY OF PRESENT ILLNESS: This is an 86-year-old male, who was in swing bed for strengthening, physical therapy, and IV antibiotic therapy. He has been noted to have a rash that started in the neck area and has progressively gotten worse, spreading all over the body red and flat macules. He does not seem to itch it and there is no recent fever or chills. PAST MEDICAL HISTORY: He has a history of hypertension, neck pain, status post cervical fusion and subsequent wound infection. He also has a history of hypertension and alteration of mental status. REVIEW OF SYSTEMS: All other systems were noncontributory. PHYSICAL EXAMINATION: VITAL SIGNS: Blood pressure is 130/70, his pulse is 88, and he is afebrile. SKIN: There was noted to be flat macules and wheals that blanches pressure, widespread through the trunk and back. There is no warmth to palpation or unusual subcutaneous nodules. IMPRESSION: Hives of unknown reason. PLAN: I am not sure if one of the antibiotics is causing it. However, he does not seem to be symptomatic. I will treat him with a short course of steroid. Continue the current medications. /[id number] TING/MARK
[2016-11-18] MEDS: predniSONE 10 MG Tab PO SCH ×2 (11:52→18:31)
[2016-11-18] MEDS: Sodium Chloride 0.9% 250 ML IV SCH (14:50)
[2016-11-18] MEDS: Acetaminophen 325 MG Tab PO PRN (16:56)
[2016-11-18] MEDS: Tamsulosin 0.4 MG Cap.ER PO SCH (20:37)
[2016-11-18] MEDS: Multivitamin Tab PO SCH (20:38)
[2016-11-18] MEDS: Latanoprost 0.005% Ophth Soln 2.5 ML Bottle *PTOM EYERT SCH (20:38)
[2016-11-18] MEDS: QUEtiapine 50 MG Tab.SR PO SCH (20:38)
[2016-11-18] MEDS: Lutein/Minerals/Vitamin C/Vitamin E Acetate Cap PO SCH (20:38)
[2016-11-19] MEDS: Cefepime 2 GM in Sodium Chloride 0.9% 50 ML IV SCH ×3 (05:36→21:34)
[2016-11-19] MEDS: Levothyroxine 75 MCG Tab PO SCH (05:37)
[2016-11-19] MEDS: Sodium Chloride 0.9% 10 ML Syringe FLUSH PRN ×5 (07:30→22:24)
[2016-11-19] MEDS: Cholecalciferol (Vitamin D3) 1,000 Unit Tab PO SCH (08:27)
[2016-11-19] MEDS: amLODIPine 5 MG Tab PO SCH (08:27)
[2016-11-19] MEDS: predniSONE 10 MG Tab PO SCH ×2 (08:27→17:42)
[2016-11-19] MEDS: Cyanocobalamin (Vitamin B12) 1,000 MCG Tab PO SCH (08:27)
[2016-11-19] MEDS: Finasteride 5 MG Tab PO SCH (08:27)
[2016-11-19] MEDS: Acetaminophen 325 MG Tab PO PRN ×2 (12:00→17:20)
[2016-11-19] MEDS: Sodium Chloride 0.9% 250 ML IV SCH (14:20)
[2016-11-19] MEDS: Tamsulosin 0.4 MG Cap.ER PO SCH (20:18)
[2016-11-19] MEDS: QUEtiapine 50 MG Tab.SR PO SCH (20:19)
[2016-11-19] MEDS: Lutein/Minerals/Vitamin C/Vitamin E Acetate Cap PO SCH (20:19)
[2016-11-19] MEDS: FLUoxetine 10 MG Cap PO SCH (20:19)
[2016-11-19] MEDS: Multivitamin Tab PO SCH (20:19)
[2016-11-19] MEDS: Latanoprost 0.005% Ophth Soln 2.5 ML Bottle *PTOM EYERT SCH (20:20)
[2016-11-20] MEDS: Cefepime 2 GM in Sodium Chloride 0.9% 50 ML IV SCH ×3 (05:43→21:33)
[2016-11-20] MEDS: Levothyroxine 75 MCG Tab PO SCH (06:30)
[2016-11-20] MEDS: predniSONE 10 MG Tab PO SCH ×2 (08:48→17:49)
[2016-11-20] MEDS: amLODIPine 5 MG Tab PO SCH (08:48)
[2016-11-20] MEDS: Cholecalciferol (Vitamin D3) 1,000 Unit Tab PO SCH (08:49)
[2016-11-20] MEDS: Finasteride 5 MG Tab PO SCH (08:49)
[2016-11-20] MEDS: Cyanocobalamin (Vitamin B12) 1,000 MCG Tab PO SCH (08:49)
[2016-11-20] MEDS: Acetaminophen 325 MG Tab PO PRN ×2 (08:53→17:01)
[2016-11-20] MEDS: Sodium Chloride 0.9% 250 ML IV SCH (14:15)
[2016-11-20] MEDS: Sodium Chloride 0.9% 10 ML Syringe FLUSH PRN ×3 (15:55→22:15)
[2016-11-20] MEDS: Tamsulosin 0.4 MG Cap.ER PO SCH (21:30)
[2016-11-20] MEDS: Lutein/Minerals/Vitamin C/Vitamin E Acetate Cap PO SCH (21:30)
[2016-11-20] MEDS: QUEtiapine 50 MG Tab.SR PO SCH (21:30)
[2016-11-20] MEDS: Multivitamin Tab PO SCH (21:31)
[2016-11-20] MEDS: Latanoprost 0.005% Ophth Soln 2.5 ML Bottle *PTOM EYERT SCH (21:31)
[2016-11-21] MEDS: Levothyroxine 75 MCG Tab PO SCH (05:13)
[2016-11-21] MEDS: Cefepime 2 GM in Sodium Chloride 0.9% 50 ML IV SCH ×3 (05:19→21:36)
[2016-11-21] MEDS: Sodium Chloride 0.9% 250 ML IV SCH ×2 (05:21→13:45)
[2016-11-21] MEDS: Sodium Chloride 0.9% 10 ML Syringe FLUSH PRN ×3 (07:09→14:50)
[2016-11-21] MEDS: predniSONE 10 MG Tab PO SCH ×2 (09:45→17:28)
[2016-11-21] MEDS: amLODIPine 5 MG Tab PO SCH (09:46)
[2016-11-21] MEDS: Finasteride 5 MG Tab PO SCH (09:47)
[2016-11-21] MEDS: Cyanocobalamin (Vitamin B12) 1,000 MCG Tab PO SCH (09:49)
[2016-11-21] MEDS: Cholecalciferol (Vitamin D3) 1,000 Unit Tab PO SCH (09:50)
[2016-11-21] MEDS: QUEtiapine 50 MG Tab.SR PO SCH (21:34)
[2016-11-21] MEDS: Multivitamin Tab PO SCH (21:34)
[2016-11-21] MEDS: FLUoxetine 10 MG Cap PO SCH (21:34)
[2016-11-21] MEDS: Latanoprost 0.005% Ophth Soln 2.5 ML Bottle *PTOM EYERT SCH (21:35)
[2016-11-21] MEDS: Tamsulosin 0.4 MG Cap.ER PO SCH (21:35)
[2016-11-21] MEDS: Lutein/Minerals/Vitamin C/Vitamin E Acetate Cap PO SCH (21:37)
[2016-11-22] MEDS: Sodium Chloride 0.9% 10 ML Syringe FLUSH PRN ×3 (05:29→13:56)
[2016-11-22] MEDS: Sodium Chloride 0.9% 250 ML IV SCH (05:30)
[2016-11-22] MEDS: Cefepime 2 GM in Sodium Chloride 0.9% 50 ML IV SCH ×3 (05:33→21:00)
[2016-11-22] MEDS: Levothyroxine 75 MCG Tab PO SCH (05:35)
[2016-11-22] MEDS: Acetaminophen 325 MG Tab PO PRN ×3 (08:08→20:58)
[2016-11-22] MEDS: predniSONE 10 MG Tab PO SCH ×2 (08:08→18:11)
[2016-11-22] MEDS: Cyanocobalamin (Vitamin B12) 1,000 MCG Tab PO SCH (09:35)
[2016-11-22] MEDS: amLODIPine 5 MG Tab PO SCH (09:35)
[2016-11-22] MEDS: Finasteride 5 MG Tab PO SCH (09:35)
[2016-11-22] MEDS: Cholecalciferol (Vitamin D3) 1,000 Unit Tab PO SCH (09:35)
[2016-11-22] MEDS: Lutein/Minerals/Vitamin C/Vitamin E Acetate Cap PO SCH (20:57)
[2016-11-22] MEDS: QUEtiapine 50 MG Tab.SR PO SCH (20:57)
[2016-11-22] MEDS: Tamsulosin 0.4 MG Cap.ER PO SCH (20:57)
[2016-11-22] MEDS: Multivitamin Tab PO SCH (20:57)
[2016-11-22] MEDS: Latanoprost 0.005% Ophth Soln 2.5 ML Bottle *PTOM EYERT SCH (20:57)
[2016-11-23] MEDS: Cefepime 2 GM in Sodium Chloride 0.9% 50 ML IV SCH ×3 (05:36→21:22)
[2016-11-23] MEDS: Sodium Chloride 0.9% 250 ML IV SCH (05:36)
[2016-11-23] MEDS: Levothyroxine 75 MCG Tab PO SCH (05:45)
[2016-11-23] MEDS: predniSONE 10 MG Tab PO SCH ×2 (07:59→18:05)
[2016-11-23] MEDS: Acetaminophen 325 MG Tab PO PRN ×3 (09:22→18:51)
[2016-11-23] MEDS: amLODIPine 5 MG Tab PO SCH (09:23)
[2016-11-23] MEDS: Cholecalciferol (Vitamin D3) 1,000 Unit Tab PO SCH (09:30)
[2016-11-23] MEDS: Cyanocobalamin (Vitamin B12) 1,000 MCG Tab PO SCH (09:30)
[2016-11-23] MEDS: Finasteride 5 MG Tab PO SCH (09:30)
[2016-11-23] MEDS: Sodium Chloride 0.9% 10 ML Syringe FLUSH PRN ×3 (14:25→21:55)
[2016-11-23] MEDS: Multivitamin Tab PO SCH (20:03)
[2016-11-23] MEDS: Tamsulosin 0.4 MG Cap.ER PO SCH (20:03)
[2016-11-23] MEDS: Lutein/Minerals/Vitamin C/Vitamin E Acetate Cap PO SCH (20:03)
[2016-11-23] MEDS: QUEtiapine 50 MG Tab.SR PO SCH (20:03)
[2016-11-23] MEDS: Latanoprost 0.005% Ophth Soln 2.5 ML Bottle *PTOM EYERT SCH (20:04)
[2016-11-24] MEDS: Acetaminophen 325 MG Tab PO PRN ×4 (01:42→21:28)
[2016-11-24] MEDS: Cefepime 2 GM in Sodium Chloride 0.9% 50 ML IV SCH ×3 (05:27→21:30)
[2016-11-24] MEDS: Levothyroxine 75 MCG Tab PO SCH (05:45)
[2016-11-24] MEDS: Sodium Chloride 0.9% 10 ML Syringe FLUSH PRN ×3 (07:35→21:30)
[2016-11-24] MEDS: amLODIPine 5 MG Tab PO SCH (09:17)
[2016-11-24] MEDS: predniSONE 10 MG Tab PO SCH ×2 (09:17→18:23)
[2016-11-24] MEDS: Finasteride 5 MG Tab PO SCH (09:18)
[2016-11-24] MEDS: Cholecalciferol (Vitamin D3) 1,000 Unit Tab PO SCH (09:19)
[2016-11-24] MEDS: Cyanocobalamin (Vitamin B12) 1,000 MCG Tab PO SCH (09:19)
[2016-11-24] MEDS: Sodium Chloride 0.9% 250 ML IV SCH (13:47)
[2016-11-24] MEDS: Tamsulosin 0.4 MG Cap.ER PO SCH (20:16)
[2016-11-24] MEDS: QUEtiapine 50 MG Tab.SR PO SCH (20:17)
[2016-11-24] MEDS: Latanoprost 0.005% Ophth Soln 2.5 ML Bottle *PTOM EYERT SCH (20:17)
[2016-11-24] MEDS: Lutein/Minerals/Vitamin C/Vitamin E Acetate Cap PO SCH (20:17)
[2016-11-24] MEDS: Multivitamin Tab PO SCH (20:17)
[2016-11-25] MEDS: Cefepime 2 GM in Sodium Chloride 0.9% 50 ML IV SCH ×3 (04:59→22:16)
[2016-11-25] MEDS: Levothyroxine 75 MCG Tab PO SCH (05:38)
[2016-11-25] MEDS: Acetaminophen 325 MG Tab PO PRN (05:39)
[2016-11-25] MEDS: predniSONE 10 MG Tab PO SCH ×2 (08:12→18:06)
[2016-11-25] MEDS: amLODIPine 5 MG Tab PO SCH (08:12)
[2016-11-25] MEDS: Finasteride 5 MG Tab PO SCH (08:17)
[2016-11-25] MEDS: Cholecalciferol (Vitamin D3) 1,000 Unit Tab PO SCH (08:18)
[2016-11-25] MEDS: Cyanocobalamin (Vitamin B12) 1,000 MCG Tab PO SCH (08:18)
[2016-11-25] MEDS ORDERED: FLU Vacc QS 2017-18 (36mos UP)/PF 60 MCG/0.5 ML Syringe IM ONE (09:00)
--- NOTE | 2016-11-25 09:49 | PCM.PN ---
- General Info Date of Service: 11/25/16 Admission Dx/Problem (Free Text): Patient states he is doing well. He says he is a little neck pain otherwise no concerns. He has no chest pain, shortness of breath, leg swelling. - Patient Data Vitals - Most Recent: Last Vital Signs Temp 98.3 F 11/25/16 08:26 Pulse 114 H 11/25/16 08:26 Resp 18 11/25/16 08:26 BP 130/64 11/25/16 08:26 Pulse Ox 98 11/25/16 08:26 Weight - Most Recent: 137 lb 6.4 oz I&O - Last 24 Hours: Intake & Output 11/24/16 11/25/16 11/25/16 22:59 06:59 14:59 Intake Total 700 966 Output Total 3775 Balance 700 -3500 Med Orders - Current: Current Medications Acetaminophen (Tylenol) 650 mg PO Q4H PRN PRN Reason: Pain Last Admin: 11/25/16 05:39 Dose: 650 mg Amlodipine Besylate (Norvasc) 5 mg PO DAILY [facility] Last Admin: 11/25/16 08:12 Dose: 5 mg Ascorbic Acid (Vitamin C) 250 mg PO DAILY PRN PRN Reason: URI SYMPTOMS Aspirin (Halfprin) 81 mg PO DAILY [facility] Last Admin: 11/13/16 09:19 Dose: 81 mg Bisacodyl (Dulcolax) 10 mg RECTAL DAILY PRN PRN Reason: Constipation Cholecalciferol (Vitamin D3) 2,000 units PO DAILY [facility] Last Admin: 11/25/16 08:18 Dose: 2,000 units Clobetasol Propionate (Clobetasol Propionate 0.05%) 0 gm TOP BID PRN PRN Reason: RASH/ITCHING Cyanocobalamin (Vitamin B12) 1,000 mcg PO DAILY [facility] Last Admin: 11/25/16 08:18 Dose: 1,000 mcg Finasteride (Proscar) 5 mg PO DAILY [facility] Last Admin: 11/25/16 08:17 Dose: 5 mg Fluticasone Propionate (Flonase) 0 gm NASBOTH DAILY PRN PRN Reason: RHINITIS Haloperidol Lactate (Haldol) 0.5 mg IM Q8H PRN PRN Reason: Agitation Last Admin: 11/15/16 08:50 Dose: 0.5 mg Cefepime HCl 2 gm/ Sodium (Chloride) 50 mls @ 100 mls/hr IV Q8H [facility] Stop: 12/21/16 23:00 Last Admin: 11/25/16 04:59 Dose: 100 mls/hr Sodium Chloride (Normal Saline) 250 mls @ 100 mls/hr IV ASDIRECTED [facility] Last Admin: 11/24/16 13:47 Dose: 100 mls/hr Vancomycin HCl 750 mg/ Sodium (Chloride) 250 mls @ 250 mls/hr IV Q12H [facility] Last Admin: 11/25/16 05:42 Dose: 250 mls/hr Latanoprost (Xalatan 0.005% Oph Sol) 0 ml EYERT BEDTIME [facility] Last Admin: 11/24/16 20:17 Dose: 1 drop Levothyroxine Sodium (Levothyroxine) 37.5 mcg PO DAILY@0600 [facility] Last Admin: 11/25/16 05:38 Dose: 37.5 mcg Menthol (Perform Pain Reliever) 0 ml TP QID PRN PRN Reason: PAIN Multivitamins/Minerals/Vitamin C (Tab-A-Alee) 1 tab PO BEDTIME [facility] Last Admin: 11/24/16 20:17 Dose: 1 tab Pantoprazole Sodium (Protonix) 40 mg PO DAILY PRN PRN Reason: HEARTBURN Prednisone (Prednisone) 10 mg PO BIDMEALS [facility] Last Admin: 11/25/16 08:12 Dose: 10 mg Propylene Glycol (Systane Lubricant) 0 ml EYEBOTH BID PRN PRN Reason: Dry Eyes Quetiapine Fumarate (Seroquel Xr) 50 mg PO BEDTIME [facility] Last Admin: 11/24/16 20:17 Dose: 50 mg Senna/Docusate Sodium (Senna Plus) 1 tab PO BID PRN PRN Reason: Constipation Last Admin: 11/20/16 08:52 Dose: 1 tab Sodium Chloride (Saline Flush) 10 ml FLUSH ASDIRECTED PRN PRN Reason: IV Use Last Admin: 11/24/16 21:30 Dose: 10 ml Tamsulosin HCl (Flomax) 0.8 mg PO BEDTIME [facility] Last Admin: 11/24/16 20:16 Dose: 0.8 mg Vancomycin HCl (Pharmacy To Dose - Vancomycin) 0 dose .XX ASDIRECTED [facility] Vit C/Vit E/Zinc/Copper/Lutein (Ocuvite Lutein) 1 each PO BEDTIME [facility] Last Admin: 11/24/16 20:17 Dose: 1 each Discontinued Medications Acetaminophen (Tylenol) 650 mg PO Q6H PRN PRN Reason: mild pain Last Admin: 11/12/16 16:05 Dose: 650 mg Fluoxetine HCl (Prozac) 10 mg PO BEDTIME [facility] Last Admin: 11/15/16 20:50 Dose: 10 mg Fluoxetine HCl (Prozac) 10 mg PO TuThSa@2100 [facility] Stop: 11/21/16 21:01 Last Admin: 11/21/16 21:34 Dose: 10 mg Vancomycin HCl 1,000 mg/ (Sodium Chloride) 250 mls @ 250 mls/hr IV Q12H [facility] Stop: 12/21/16 23:00 Last Admin: 11/13/16 04:11 Dose: 250 mls/hr Vancomycin HCl 1,000 mg/ (Sodium Chloride) 250 mls @ 250 mls/hr IV Q12H [facility] Stop: 12/21/16 23:00 Last Admin: 11/20/16 06:30 Dose: 250 mls/hr Lorazepam (Ativan) 0.5 mg PO QID PRN PRN Reason: Anxiety/agitation Last Admin: 11/13/16 22:10 Dose: 0.5 mg Potassium Phos/Sodium Phos (Phos-Nak Powder) 1 each PO TID [facility] Stop: 11/15/16 09:01 Last Admin: 11/15/16 08:39 Dose: 1 packet Quetiapine Fumarate (Seroquel) 25 mg PO BEDTIME [facility] Quetiapine Fumarate (Seroquel) 25 mg PO ONETIME ONE Stop: 11/14/16 10:31 Last Admin: 11/14/16 11:09 Dose: 25 mg Quetiapine Fumarate (Seroquel) Confirm Administered Dose 50 mg .ROUTE .STK-MED ONE Stop: 11/15/16 20:41 Last Admin: 11/15/16 20:47 Dose: Not Given - Exam General: Alert, Oriented, Cooperative Lungs: Clear to Auscultation, Normal Respiratory Effort Cardiovascular: Regular Rate, Regular Rhythm, No Murmurs - Problem List & Annotations (1) Wound infection after surgery SNOMED Code(s): 14057883, 988728065 Code(s): T81.4XXA - INFECTION FOLLOWING A PROCEDURE, INITIAL ENCOUNTER Status: Acute Current Visit: No - Problem List Review Problem List Initiated/Reviewed/Updated: Yes - My Orders Last 24 Hours: My Active Orders 11/26/16 06:00 CREATININE W/GFR [CHEM] WEEKLY 11/30/16 06:00 CBC WITH AUTO DIFF [HEME] WEEKLY CREATININE W/GFR [CHEM] WEEKLY CRP [C-REACTIVE PROTEIN] [CHEM] WEEKLY 12/03/16 06:00 CREATININE W/GFR [CHEM] WEEKLY 12/07/16 06:00 CBC WITH AUTO DIFF [HEME] WEEKLY CREATININE W/GFR [CHEM] WEEKLY CRP [C-REACTIVE PROTEIN] [CHEM] WEEKLY 12/10/16 06:00 CREATININE W/GFR [CHEM] WEEKLY 12/14/16 06:00 CBC WITH AUTO DIFF [HEME] WEEKLY CREATININE W/GFR [CHEM] WEEKLY CRP [C-REACTIVE PROTEIN] [CHEM] WEEKLY 12/17/16 06:00 CREATININE W/GFR [CHEM] Routine 12/21/16 06:00 CBC WITH AUTO DIFF [HEME] Routine CREATININE W/GFR [CHEM] Routine CRP [C-REACTIVE PROTEIN] [CHEM] Routine - Plan Plan:: 1. Patient has a Roman in place. Start clamping and off until the patient has an urge. Hopefully in the next couple days try to DC his Roman catheter. 2. Continue IV antibiotics per ID.
[2016-11-25] MEDS: Sodium Chloride 0.9% 10 ML Syringe FLUSH PRN ×2 (19:31→23:06)
[2016-11-25] MEDS: Tamsulosin 0.4 MG Cap.ER PO SCH (20:00)
[2016-11-25] MEDS: QUEtiapine 50 MG Tab.SR PO SCH (20:00)
[2016-11-25] MEDS: Latanoprost 0.005% Ophth Soln 2.5 ML Bottle *PTOM EYERT SCH (20:00)
[2016-11-25] MEDS: Multivitamin Tab PO SCH (20:00)
[2016-11-25] MEDS: Lutein/Minerals/Vitamin C/Vitamin E Acetate Cap PO SCH (20:00)
[2016-11-25] MEDS: Sodium Chloride 0.9% 250 ML IV SCH (22:16)
[2016-11-26] MEDS: Acetaminophen 325 MG Tab PO PRN ×2 (03:10→20:18)
[2016-11-26] MEDS: Sodium Chloride 0.9% 250 ML IV SCH (05:30)
[2016-11-26] MEDS: Cefepime 2 GM in Sodium Chloride 0.9% 50 ML IV SCH ×3 (05:31→21:46)
[2016-11-26] MEDS: Levothyroxine 75 MCG Tab PO SCH (06:01)
[2016-11-26] MEDS: Cyanocobalamin (Vitamin B12) 1,000 MCG Tab PO SCH (08:52)
[2016-11-26] MEDS: predniSONE 10 MG Tab PO SCH ×2 (08:52→18:01)
[2016-11-26] MEDS: amLODIPine 5 MG Tab PO SCH (08:52)
[2016-11-26] MEDS: Finasteride 5 MG Tab PO SCH (08:52)
[2016-11-26] MEDS: Cholecalciferol (Vitamin D3) 1,000 Unit Tab PO SCH (08:52)
[2016-11-26] MEDS: Sodium Chloride 0.9% 10 ML Syringe FLUSH PRN ×3 (14:45→21:45)
[2016-11-26] MEDS: Tamsulosin 0.4 MG Cap.ER PO SCH (20:40)
[2016-11-26] MEDS: Lutein/Minerals/Vitamin C/Vitamin E Acetate Cap PO SCH (20:41)
[2016-11-26] MEDS: Multivitamin Tab PO SCH (20:41)
[2016-11-26] MEDS: QUEtiapine 50 MG Tab.SR PO SCH (20:41)
[2016-11-26] MEDS: Latanoprost 0.005% Ophth Soln 2.5 ML Bottle *PTOM EYERT SCH (20:42)
[2016-11-27] MEDS: Sodium Chloride 0.9% 250 ML IV SCH (05:16)
[2016-11-27] MEDS: Cefepime 2 GM in Sodium Chloride 0.9% 50 ML IV SCH ×3 (05:16→21:41)
[2016-11-27] MEDS: Levothyroxine 75 MCG Tab PO SCH (05:18)
[2016-11-27] MEDS: Sodium Chloride 0.9% 10 ML Syringe FLUSH PRN (06:52)
[2016-11-27] MEDS: Aspirin 81 MG Tab.EC PO SCH (09:30)
[2016-11-27] MEDS: predniSONE 10 MG Tab PO SCH ×2 (09:30→18:58)
[2016-11-27] MEDS: amLODIPine 5 MG Tab PO SCH (09:30)
[2016-11-27] MEDS: Finasteride 5 MG Tab PO SCH (09:31)
[2016-11-27] MEDS: Cyanocobalamin (Vitamin B12) 1,000 MCG Tab PO SCH (09:31)
[2016-11-27] MEDS: Cholecalciferol (Vitamin D3) 1,000 Unit Tab PO SCH (09:31)
[2016-11-27] MEDS: [UNRECOGNIZED DRUG - OTHER] TP PRN ×2 (09:33→21:40)
[2016-11-27] MEDS: QUEtiapine 50 MG Tab.SR PO SCH (20:54)
[2016-11-27] MEDS: Lutein/Minerals/Vitamin C/Vitamin E Acetate Cap PO SCH (20:54)
[2016-11-27] MEDS: Tamsulosin 0.4 MG Cap.ER PO SCH (20:54)
[2016-11-27] MEDS: Latanoprost 0.005% Ophth Soln 2.5 ML Bottle *PTOM EYERT SCH (20:55)
[2016-11-27] MEDS: Multivitamin Tab PO SCH (20:55)
[2016-11-28] MEDS: Cefepime 2 GM in Sodium Chloride 0.9% 50 ML IV SCH ×3 (05:40→21:13)
[2016-11-28] MEDS: Levothyroxine 75 MCG Tab PO SCH (06:47)
[2016-11-28] MEDS: predniSONE 10 MG Tab PO SCH ×2 (08:38→18:45)
[2016-11-28] MEDS: amLODIPine 5 MG Tab PO SCH (08:41)
[2016-11-28] MEDS: Aspirin 81 MG Tab.EC PO SCH (08:41)
[2016-11-28] MEDS: Cyanocobalamin (Vitamin B12) 1,000 MCG Tab PO SCH (08:46)
[2016-11-28] MEDS: Finasteride 5 MG Tab PO SCH (08:46)
[2016-11-28] MEDS: Cholecalciferol (Vitamin D3) 1,000 Unit Tab PO SCH (08:46)
[2016-11-28] MEDS: [UNRECOGNIZED DRUG - OTHER] TP PRN (08:48)
[2016-11-28] MEDS: Acetaminophen 325 MG Tab PO PRN ×2 (10:48→21:17)
[2016-11-28] MEDS: Sodium Chloride 0.9% 250 ML IV SCH ×2 (13:02→18:46)
[2016-11-28] MEDS: Sodium Chloride 0.9% 10 ML Syringe FLUSH PRN (13:44)
[2016-11-28] MEDS: Latanoprost 0.005% Ophth Soln 2.5 ML Bottle *PTOM EYERT SCH (21:06)
[2016-11-28] MEDS: QUEtiapine 50 MG Tab.SR PO SCH (21:06)
[2016-11-28] MEDS: Tamsulosin 0.4 MG Cap.ER PO SCH (21:06)
[2016-11-28] MEDS: Lutein/Minerals/Vitamin C/Vitamin E Acetate Cap PO SCH (21:06)
[2016-11-28] MEDS: Multivitamin Tab PO SCH (21:07)
[2016-11-29] MEDS: Cefepime 2 GM in Sodium Chloride 0.9% 50 ML IV SCH ×3 (05:18→20:15)
[2016-11-29] MEDS: Levothyroxine 75 MCG Tab PO SCH (06:09)
[2016-11-29] MEDS: Finasteride 5 MG Tab PO SCH (08:27)
[2016-11-29] MEDS: Cholecalciferol (Vitamin D3) 1,000 Unit Tab PO SCH (08:27)
[2016-11-29] MEDS: amLODIPine 5 MG Tab PO SCH (08:27)
[2016-11-29] MEDS: Aspirin 81 MG Tab.EC PO SCH (08:27)
[2016-11-29] MEDS: predniSONE 10 MG Tab PO SCH ×2 (08:27→17:25)
[2016-11-29] MEDS: Cyanocobalamin (Vitamin B12) 1,000 MCG Tab PO SCH (08:28)
[2016-11-29] MEDS: Sodium Chloride 0.9% 10 ML Syringe FLUSH PRN ×2 (14:04→20:59)
[2016-11-29] MEDS: Sodium Chloride 0.9% 250 ML IV SCH (17:16)
[2016-11-29] MEDS: Tamsulosin 0.4 MG Cap.ER PO SCH (20:16)
[2016-11-29] MEDS: Multivitamin Tab PO SCH (20:17)
[2016-11-29] MEDS: Lutein/Minerals/Vitamin C/Vitamin E Acetate Cap PO SCH (20:17)
[2016-11-29] MEDS: Latanoprost 0.005% Ophth Soln 2.5 ML Bottle *PTOM EYERT SCH (20:17)
[2016-11-29] MEDS: QUEtiapine 50 MG Tab.SR PO SCH (20:17)
[2016-11-29] MEDS: [UNRECOGNIZED DRUG - OTHER] TP PRN (20:18)
[2016-11-29] MEDS: Acetaminophen 325 MG Tab PO PRN (21:33)
[2016-11-30] MEDS: Cefepime 2 GM in Sodium Chloride 0.9% 50 ML IV SCH ×3 (05:14→20:24)
[2016-11-30] MEDS: Levothyroxine 75 MCG Tab PO SCH (06:04)
[2016-11-30] MEDS: Sodium Chloride 0.9% 10 ML Syringe FLUSH PRN ×2 (07:56→11:58)
[2016-11-30] MEDS: predniSONE 10 MG Tab PO SCH ×2 (08:09→18:26)
[2016-11-30] MEDS: Aspirin 81 MG Tab.EC PO SCH (08:10)
[2016-11-30] MEDS: amLODIPine 5 MG Tab PO SCH (08:10)
[2016-11-30] MEDS: Finasteride 5 MG Tab PO SCH (08:11)
[2016-11-30] MEDS: Cyanocobalamin (Vitamin B12) 1,000 MCG Tab PO SCH (08:11)
[2016-11-30] MEDS: Cholecalciferol (Vitamin D3) 1,000 Unit Tab PO SCH (08:12)
[2016-11-30] MEDS: Acetaminophen 325 MG Tab PO PRN ×2 (11:17→18:52)
[2016-11-30] MEDS: Tamsulosin 0.4 MG Cap.ER PO SCH (11:19)
[2016-11-30] MEDS: QUEtiapine 50 MG Tab.SR PO SCH (20:26)
[2016-11-30] MEDS: Latanoprost 0.005% Ophth Soln 2.5 ML Bottle *PTOM EYERT SCH (20:26)
[2016-11-30] MEDS: Lutein/Minerals/Vitamin C/Vitamin E Acetate Cap PO SCH (20:27)
[2016-11-30] MEDS: Multivitamin Tab PO SCH (20:27)
[2016-12-01] MEDS: Cefepime 2 GM in Sodium Chloride 0.9% 50 ML IV SCH ×3 (05:44→20:51)
[2016-12-01] MEDS: Sodium Chloride 0.9% 250 ML IV SCH (05:45)
[2016-12-01] MEDS: Levothyroxine 75 MCG Tab PO SCH (05:50)
[2016-12-01] MEDS: Tamsulosin 0.4 MG Cap.ER PO SCH (08:29)
[2016-12-01] MEDS: predniSONE 10 MG Tab PO SCH (08:29)
[2016-12-01] MEDS: Aspirin 81 MG Tab.EC PO SCH (08:30)
[2016-12-01] MEDS: amLODIPine 5 MG Tab PO SCH (08:32)
[2016-12-01] MEDS: Finasteride 5 MG Tab PO SCH (08:37)
[2016-12-01] MEDS: Cholecalciferol (Vitamin D3) 1,000 Unit Tab PO SCH (08:38)
[2016-12-01] MEDS: Cyanocobalamin (Vitamin B12) 1,000 MCG Tab PO SCH (08:38)
[2016-12-01] MEDS: Acetaminophen 325 MG Tab PO PRN ×3 (12:14→20:59)
[2016-12-01] MEDS: Sodium Chloride 0.9% 10 ML Syringe FLUSH PRN ×2 (12:26→21:53)
[2016-12-01] MEDS: Lutein/Minerals/Vitamin C/Vitamin E Acetate Cap PO SCH (20:51)
[2016-12-01] MEDS: QUEtiapine 50 MG Tab.SR PO SCH (20:51)
[2016-12-01] MEDS: Multivitamin Tab PO SCH (20:51)
[2016-12-01] MEDS: Latanoprost 0.005% Ophth Soln 2.5 ML Bottle *PTOM EYERT SCH (20:52)
[2016-12-02] MEDS: Cefepime 2 GM in Sodium Chloride 0.9% 50 ML IV SCH ×3 (05:28→20:41)
[2016-12-02] MEDS: Levothyroxine 75 MCG Tab PO SCH (06:11)
[2016-12-02] MEDS: Sodium Chloride 0.9% 10 ML Syringe FLUSH PRN ×5 (07:15→20:43)
[2016-12-02] MEDS: predniSONE 10 MG Tab PO SCH (08:39)
[2016-12-02] MEDS: Aspirin 81 MG Tab.EC PO SCH (08:40)
[2016-12-02] MEDS: Tamsulosin 0.4 MG Cap.ER PO SCH (08:40)
[2016-12-02] MEDS: Finasteride 5 MG Tab PO SCH (08:41)
[2016-12-02] MEDS: amLODIPine 5 MG Tab PO SCH (08:41)
[2016-12-02] MEDS: Cyanocobalamin (Vitamin B12) 1,000 MCG Tab PO SCH (08:42)
[2016-12-02] MEDS: Cholecalciferol (Vitamin D3) 1,000 Unit Tab PO SCH (08:42)
[2016-12-02] MEDS: Acetaminophen 325 MG Tab PO PRN ×2 (08:43→17:09)
[2016-12-02] MEDS: Sodium Chloride 0.9% 250 ML IV SCH (12:41)
[2016-12-02] MEDS: Acetaminophen 325 MG Tab PO SCH ×2 (13:55→20:28)
[2016-12-02] MEDS: Lutein/Minerals/Vitamin C/Vitamin E Acetate Cap PO SCH (20:27)
[2016-12-02] MEDS: Multivitamin Tab PO SCH (20:28)
[2016-12-02] MEDS: QUEtiapine 50 MG Tab.SR PO SCH (20:28)
[2016-12-02] MEDS: Latanoprost 0.005% Ophth Soln 2.5 ML Bottle *PTOM EYERT SCH (20:29)
[2016-12-03] MEDS: Cefepime 2 GM in Sodium Chloride 0.9% 50 ML IV SCH ×3 (05:11→21:19)
[2016-12-03] MEDS: Levothyroxine 75 MCG Tab PO SCH (06:02)
[2016-12-03] MEDS: Sodium Chloride 0.9% 10 ML Syringe FLUSH PRN ×4 (07:15→22:15)
[2016-12-03] MEDS: Aspirin 81 MG Tab.EC PO SCH (08:33)
[2016-12-03] MEDS: predniSONE 10 MG Tab PO SCH (08:33)
[2016-12-03] MEDS: Tamsulosin 0.4 MG Cap.ER PO SCH (08:33)
[2016-12-03] MEDS: amLODIPine 5 MG Tab PO SCH (08:33)
[2016-12-03] MEDS: Acetaminophen 325 MG Tab PO SCH ×3 (08:34→21:11)
[2016-12-03] MEDS: Finasteride 5 MG Tab PO SCH (08:34)
[2016-12-03] MEDS: Cyanocobalamin (Vitamin B12) 1,000 MCG Tab PO SCH (08:35)
[2016-12-03] MEDS: Cholecalciferol (Vitamin D3) 1,000 Unit Tab PO SCH (08:35)
[2016-12-03] MEDS ORDERED: FLU Vacc QS 2017-18 (36mos UP)/PF 60 MCG/0.5 ML Syringe ONE (10:22)
[2016-12-03] MEDS: Sodium Chloride 0.9% 250 ML IV SCH ×2 (12:52→18:24)
[2016-12-03] MEDS: Lutein/Minerals/Vitamin C/Vitamin E Acetate Cap PO SCH (21:11)
[2016-12-03] MEDS: Multivitamin Tab PO SCH (21:11)
[2016-12-03] MEDS: Latanoprost 0.005% Ophth Soln 2.5 ML Bottle *PTOM EYERT SCH (21:12)
[2016-12-03] MEDS: QUEtiapine 50 MG Tab.SR PO SCH (21:20)
[2016-12-04] MEDS: Cefepime 2 GM in Sodium Chloride 0.9% 50 ML IV SCH ×3 (05:17→20:40)
[2016-12-04] MEDS: Levothyroxine 75 MCG Tab PO SCH (05:22)
[2016-12-04] MEDS: Sodium Chloride 0.9% 10 ML Syringe FLUSH PRN (05:56)
[2016-12-04] MEDS: [UNRECOGNIZED DRUG - OTHER] TP PRN (06:50)
[2016-12-04] MEDS: Tamsulosin 0.4 MG Cap.ER PO SCH (09:09)
[2016-12-04] MEDS: predniSONE 10 MG Tab PO SCH (09:09)
[2016-12-04] MEDS: Finasteride 5 MG Tab PO SCH (09:10)
[2016-12-04] MEDS: Acetaminophen 325 MG Tab PO SCH ×3 (09:10→20:43)
[2016-12-04] MEDS: Aspirin 81 MG Tab.EC PO SCH (09:10)
[2016-12-04] MEDS: amLODIPine 5 MG Tab PO SCH (09:10)
[2016-12-04] MEDS: Cyanocobalamin (Vitamin B12) 1,000 MCG Tab PO SCH (09:11)
[2016-12-04] MEDS: Cholecalciferol (Vitamin D3) 1,000 Unit Tab PO SCH (09:11)
--- NOTE | 2016-12-04 14:07 | PN ---
DATE SEEN: 12/04/2016 SUBJECTIVE: Mr. Thibodeaux is a delightful 86-year-old, male, presently at [facility] for a long-term antibiotic treatment for a postoperative cervical neck surgery. He has had multiple intermittent hospitalizations. Presently on intravenous cefepime 2 g q.8 hours. Other medications reviewed and appropriate. Doing well. Pain is a limited, and PT is actively involved. There has been some increasing issues of confusion and lack of awareness of his environment. Most recent laboratory studies; kidney functions have been satisfactory. Hemoglobin is a little low at 8.4 and 8.8, the last 2 times. This will be taken under consideration. Laboratory studies are done accordingly. OBJECTIVE: SKIN: Incisions feels well. CHEST: Clear. HEART: Regular. ABDOMEN: Benign. NEUROLOGIC: Bright, sleepy today. ASSESSMENT: Complicated neck surgery with postoperative infection, increasing confusion, anemia of uncertain origin, and benign prostatic hypertrophy treatment with complicated episodes of nocturia. PLAN: We will obtain iron studies, CBC, and appropriate studies for his anemia. Residual urine and complementary care. /[id number] /MARK
[2016-12-04] MEDS: Acetaminophen 325 MG Tab PO PRN (18:14)
[2016-12-04] MEDS: Sodium Chloride 0.9% 250 ML IV SCH (18:21)
[2016-12-04] MEDS: Multivitamin Tab PO SCH (20:41)
[2016-12-04] MEDS: Latanoprost 0.005% Ophth Soln 2.5 ML Bottle *PTOM EYERT SCH (20:41)
[2016-12-04] MEDS: Lutein/Minerals/Vitamin C/Vitamin E Acetate Cap PO SCH (20:42)
[2016-12-04] MEDS: QUEtiapine 50 MG Tab.SR PO SCH (20:42)
[2016-12-05] MEDS: Cefepime 2 GM in Sodium Chloride 0.9% 50 ML IV SCH ×3 (05:10→20:33)
[2016-12-05] MEDS: Levothyroxine 75 MCG Tab PO SCH (06:00)
[2016-12-05] MEDS: Sodium Chloride 0.9% 10 ML Syringe FLUSH PRN ×3 (07:14→13:55)
[2016-12-05] MEDS: predniSONE 10 MG Tab PO SCH (08:07)
[2016-12-05] MEDS: Tamsulosin 0.4 MG Cap.ER PO SCH (08:08)
[2016-12-05] MEDS: Finasteride 5 MG Tab PO SCH (08:09)
[2016-12-05] MEDS: Aspirin 81 MG Tab.EC PO SCH (08:09)
[2016-12-05] MEDS: amLODIPine 5 MG Tab PO SCH (08:09)
[2016-12-05] MEDS: Acetaminophen 325 MG Tab PO SCH ×3 (08:10→20:31)
[2016-12-05] MEDS: Cholecalciferol (Vitamin D3) 1,000 Unit Tab PO SCH (08:11)
[2016-12-05] MEDS: Cyanocobalamin (Vitamin B12) 1,000 MCG Tab PO SCH (08:11)
[2016-12-05] MEDS: [UNRECOGNIZED DRUG - OTHER] TP PRN (10:01)
--- NOTE | 2016-12-05 11:28 | PN ---
DATE SEEN: 12/05/2016 SUBJECTIVE: Arsalan Thibodeaux is an 86-year-old male, a long-term hospital stay for complicated postoperative cervical spine infection. Urinary frequency a concern, increasing frequency of confusion a concern. Observation workup of anemia at present, 8.8 on 11/30, today 9.1. Other studies pending. PHYSICAL EXAMINATION: VITAL SIGNS: Stable. Cervical spine without conflict. Ambulation was observed. ASSESSMENT: Postoperative infection, cervical spine surgery. PLAN: Meds, care and treatment appropriate, no changes. Residual urine 75. Meds on board for prostate active as we can be, Proscar on board, Flomax will be started accordingly. Flomax and Proscar on board. No other intervention required. Urine for infection will be checked. /[id number] [id number] DAWIT/MARK
[2016-12-05] MEDS: Lutein/Minerals/Vitamin C/Vitamin E Acetate Cap PO SCH (20:32)
[2016-12-05] MEDS: Latanoprost 0.005% Ophth Soln 2.5 ML Bottle *PTOM EYERT SCH (20:32)
[2016-12-05] MEDS: QUEtiapine 50 MG Tab.SR PO SCH (20:32)
[2016-12-05] MEDS: Multivitamin Tab PO SCH (20:32)
[2016-12-06] MEDS: Cefepime 2 GM in Sodium Chloride 0.9% 50 ML IV SCH ×3 (04:51→20:25)
[2016-12-06] MEDS: Acetaminophen 325 MG Tab PO PRN ×3 (05:24→19:19)
[2016-12-06] MEDS: Levothyroxine 75 MCG Tab PO SCH (05:26)
[2016-12-06] MEDS: Sodium Chloride 0.9% 10 ML Syringe FLUSH PRN ×4 (06:47→19:06)
[2016-12-06] MEDS: Finasteride 5 MG Tab PO SCH (08:13)
[2016-12-06] MEDS: Cholecalciferol (Vitamin D3) 1,000 Unit Tab PO SCH (08:13)
[2016-12-06] MEDS: Tamsulosin 0.4 MG Cap.ER PO SCH (08:13)
[2016-12-06] MEDS: Aspirin 81 MG Tab.EC PO SCH (08:13)
[2016-12-06] MEDS: Cyanocobalamin (Vitamin B12) 1,000 MCG Tab PO SCH (08:13)
[2016-12-06] MEDS: amLODIPine 5 MG Tab PO SCH (08:14)
[2016-12-06] MEDS: Acetaminophen 325 MG Tab PO SCH ×3 (08:14→20:30)
--- NOTE | 2016-12-06 10:54 | PN ---
DATE SEEN: 12/06/2016 SUBJECTIVE: Arsalan Thibodeaux is an 86-year-old male, in swing bed for ongoing antibiotic therapy. Antibiotics, 11/12/2016 to 11/21/2016. Doing well. Elected to participate in PT but stable. Confusion continues to be an ongoing issue. LABORATORY STUDIES: 12/05/2016, satisfactory unremarkable, previous laboratory studies noted including hemoglobin 8.8 to 9.9 with normochromic indices. MEDICATIONS: Reviewed and appropriate. Nothing contrary or need of ongoing laboratory studies. OBJECTIVE: SKIN: Surgical wound well healed, normal. CHEST: Clear. HEART: Regular. Occasional ectopy. ABDOMEN: Benign. ASSESSMENT: Complicated postoperative cervical neck surgery. PLAN: Antibiotics and care as appropriate. /[id number] [id number] DAWIT/MARK
[2016-12-06 15:01] LABS: UNSATURATED IRON BIND CAPACITY 251 ug/dL (112-347)
[2016-12-06] MEDS: Multivitamin Tab PO SCH (20:26)
[2016-12-06] MEDS: QUEtiapine 50 MG Tab.SR PO SCH (20:26)
[2016-12-06] MEDS: Lutein/Minerals/Vitamin C/Vitamin E Acetate Cap PO SCH (20:26)
[2016-12-06] MEDS: Latanoprost 0.005% Ophth Soln 2.5 ML Bottle *PTOM EYERT SCH (20:27)
[2016-12-07] MEDS: Cefepime 2 GM in Sodium Chloride 0.9% 50 ML IV SCH ×3 (04:52→22:08)
[2016-12-07] MEDS: Levothyroxine 75 MCG Tab PO SCH (05:49)
[2016-12-07] MEDS: Finasteride 5 MG Tab PO SCH (08:58)
[2016-12-07] MEDS: Cyanocobalamin (Vitamin B12) 1,000 MCG Tab PO SCH (08:58)
[2016-12-07] MEDS: Acetaminophen 325 MG Tab PO SCH ×3 (08:58→21:32)
[2016-12-07] MEDS: Aspirin 81 MG Tab.EC PO SCH (08:58)
[2016-12-07] MEDS: amLODIPine 5 MG Tab PO SCH (08:58)
[2016-12-07] MEDS: Tamsulosin 0.4 MG Cap.ER PO SCH (08:58)
[2016-12-07] MEDS: Cholecalciferol (Vitamin D3) 1,000 Unit Tab PO SCH (08:58)
--- NOTE | 2016-12-07 11:06 | PN ---
DATE SEEN: 12/07/2016 Arsalan Thibodeaux is an 86-year-old, male, a long-term antibiotic used till, from 11/12/2016 to 12/21/2016 for complicated previous neck surgery infection. Home situation under review. Ambulatory skills are limited, and PT activity complementary but little response in his part. Home situation to be considered. /[id number] 1101 DAWIT/MARK
[2016-12-07] MEDS: Acetaminophen 325 MG Tab PO PRN (11:53)
[2016-12-07] MEDS: Sodium Chloride 0.9% 250 ML IV SCH (20:10)
[2016-12-07] MEDS: QUEtiapine 50 MG Tab.SR PO SCH (21:32)
[2016-12-07] MEDS: Lutein/Minerals/Vitamin C/Vitamin E Acetate Cap PO SCH (21:32)
[2016-12-07] MEDS: Multivitamin Tab PO SCH (21:32)
[2016-12-07] MEDS: Latanoprost 0.005% Ophth Soln 2.5 ML Bottle *PTOM EYERT SCH (21:33)
[2016-12-08] MEDS: Cefepime 2 GM in Sodium Chloride 0.9% 50 ML IV SCH ×3 (04:27→20:43)
[2016-12-08] MEDS: Sodium Chloride 0.9% 250 ML IV SCH ×2 (04:28→20:37)
[2016-12-08] MEDS: [UNRECOGNIZED DRUG - OTHER] TP PRN ×2 (04:41→20:25)
[2016-12-08] MEDS: Levothyroxine 75 MCG Tab PO SCH (05:02)
[2016-12-08] MEDS ORDERED: VANCOMYCIN IV SCH (06:00)
[2016-12-08] MEDS ORDERED: SODIUM CHLORIDE 0.9% IV SCH (06:00)
[2016-12-08] MEDS: Sodium Chloride 0.9% 10 ML Syringe FLUSH PRN ×2 (06:51→17:55)
[2016-12-08] MEDS: amLODIPine 5 MG Tab PO SCH (08:02)
[2016-12-08] MEDS: Tamsulosin 0.4 MG Cap.ER PO SCH (08:02)
[2016-12-08] MEDS: Finasteride 5 MG Tab PO SCH (08:02)
[2016-12-08] MEDS: Aspirin 81 MG Tab.EC PO SCH (08:02)
[2016-12-08] MEDS: Acetaminophen 325 MG Tab PO SCH ×3 (08:03→20:29)
[2016-12-08] MEDS: Cholecalciferol (Vitamin D3) 1,000 Unit Tab PO SCH (08:04)
[2016-12-08] MEDS: Cyanocobalamin (Vitamin B12) 1,000 MCG Tab PO SCH (08:04)
[2016-12-08] MEDS: Ferrous Gluconate 324 MG Tab PO SCH ×3 (12:09→20:28)
--- NOTE | 2016-12-08 13:51 | PN ---
DATE SEEN: 12/08/2016 SUBJECTIVE: Arsalan Thibodeaux is an 86-year-old male, undergoing long-term antibiotic therapy from 11/12/2016 to 12/21/2016. Had a visit with Infectious Disease. No change in medications. Long-term antibiotic therapy, cefepime HCL 2 g q.8 hours. Came home exhausted, increasing confusion, increasing lethargy. Spiked a fever last evening. Origin undetermined. Has a rash on his thigh, was present before. OBJECTIVE: VITAL SIGNS: 38.4, 117, 115/54, mean blood pressure 74, respirations 18, O2 saturation 98%. GENERAL: Supine in bed. Speech was fluent. CHEST: Clear. HEART: Regular. ABDOMEN: Benign. ASSESSMENT: 1. Long-term antibiotic therapy for postoperative cervical surgical wound infection. 2. Unexplained fever. PLAN: Blood cultures, appropriate tests, urinalysis, and chest x-ray. Timely appropriate care. Results to follow. No change in antibiotics. /[id number] [id number] DAWIT/MARK
[2016-12-08] MEDS: Latanoprost 0.005% Ophth Soln 2.5 ML Bottle *PTOM EYERT SCH (20:27)
[2016-12-08] MEDS: Multivitamin Tab PO SCH (20:28)
[2016-12-08] MEDS: QUEtiapine 50 MG Tab.SR PO SCH (20:28)
[2016-12-08] MEDS: Lutein/Minerals/Vitamin C/Vitamin E Acetate Cap PO SCH (20:28)
[2016-12-08] MEDS: Acetaminophen 325 MG Tab PO PRN (23:59)
[2016-12-09] MEDS: Acetaminophen 325 MG Tab PO PRN ×2 (04:42→17:59)
[2016-12-09] MEDS: Cefepime 2 GM in Sodium Chloride 0.9% 50 ML IV SCH ×3 (04:52→22:05)
[2016-12-09] MEDS: Sodium Chloride 0.9% 10 ML Syringe FLUSH PRN ×3 (04:57→13:20)
[2016-12-09] MEDS: Levothyroxine 75 MCG Tab PO SCH (05:59)
--- NOTE | 2016-12-09 09:19 | CR ---
INDICATION: Fever. CHEST: AP and lateral views of the chest were obtained with difficulty due to the patient's inability to cooperate with procedure. There is a central PICC line in place with its tip at the right atrium. The heart appears prominent, but not grossly enlarged. The aorta is minimally prominent in the aortic knob area. Thickening of the minor fissure raises question of minimal pleural fluid. The upper lung field pulmonary vasculature is slightly prominent, raising question of mild pulmonary vascular congestion with interstitial changes also suggesting the possibility of interstitial edema. Findings should be correlated clinically as to the possibility of CHF or possibly fluid overload or other etiology for pulmonary vascular congestion. Patchy areas of infiltration are noted at the lung bases and mid lung field on the right. These may be on the basis of alveolar lung edema or possibly areas of patchy pneumonia. IMPRESSION: 1. Cannot exclude mild cardiomegaly with CHF and interstitial lung edema - correlate clinically. 2. Possible patchy areas of pneumonia especially at the lung bases and right mid lung field, possibly with minimal pleuritis on the right. MTDD
[2016-12-09] MEDS: predniSONE 20 MG Tab PO SCH (09:42)
[2016-12-09] MEDS: Ferrous Gluconate 324 MG Tab PO SCH ×3 (09:42→22:03)
[2016-12-09] MEDS: Acetaminophen 325 MG Tab PO SCH ×3 (09:43→22:04)
[2016-12-09] MEDS: Aspirin 81 MG Tab.EC PO SCH (09:45)
[2016-12-09] MEDS: amLODIPine 5 MG Tab PO SCH (09:48)
[2016-12-09] MEDS: Cyanocobalamin (Vitamin B12) 1,000 MCG Tab PO SCH (09:49)
[2016-12-09] MEDS: Cholecalciferol (Vitamin D3) 1,000 Unit Tab PO SCH (09:49)
[2016-12-09] MEDS: Finasteride 5 MG Tab PO SCH (09:50)
[2016-12-09] MEDS: Tamsulosin 0.4 MG Cap.ER PO SCH (09:50)
--- NOTE | 2016-12-09 10:41 | PN ---
DATE SEEN: 12/09/2016 Arsalan Thibodeaux is an 86-year-old, male, a long-term swing bed stay. 11/12/2016 to 12/21/2016, antibiotic therapy with Cefepime 2 g q.8 hours. Recent visit with Infectious Disease noted. Concomitant therapy with vancomycin. Monitored by Pharmacy. Confusion persists. Lethargy and generalized weakness. PT/OT actively involved. Discharged home, and likely opportunity given circumstances and well being. Family and others will be involved. Previous fever has abated. Timely care and treatment. /[id number] [id number] DAWIT/MARK
[2016-12-09] MEDS: Sodium Chloride 0.9% 250 ML IV SCH (18:37)
[2016-12-09] MEDS: Lutein/Minerals/Vitamin C/Vitamin E Acetate Cap PO SCH (22:03)
[2016-12-09] MEDS: QUEtiapine 50 MG Tab.SR PO SCH (22:04)
[2016-12-09] MEDS: Multivitamin Tab PO SCH (22:05)
[2016-12-09] MEDS: Latanoprost 0.005% Ophth Soln 2.5 ML Bottle *PTOM EYERT SCH (22:10)
[2016-12-10] MEDS: Cefepime 2 GM in Sodium Chloride 0.9% 50 ML IV SCH (05:41)
[2016-12-10] MEDS: Sodium Chloride 0.9% 10 ML Syringe FLUSH PRN ×2 (05:41→06:30)
[2016-12-10] MEDS: Levothyroxine 75 MCG Tab PO SCH (05:47)
[2016-12-10] MEDS: predniSONE 20 MG Tab PO SCH (08:07)
[2016-12-10] MEDS: Acetaminophen 325 MG Tab PO SCH ×3 (08:08→21:08)
[2016-12-10] MEDS: Ferrous Gluconate 324 MG Tab PO SCH ×3 (08:11→21:11)
[2016-12-10] MEDS: Tamsulosin 0.4 MG Cap.ER PO SCH (08:11)
[2016-12-10] MEDS: amLODIPine 5 MG Tab PO SCH (08:12)
[2016-12-10] MEDS: Aspirin 81 MG Tab.EC PO SCH (08:12)
[2016-12-10] MEDS: Cyanocobalamin (Vitamin B12) 1,000 MCG Tab PO SCH (08:13)
[2016-12-10] MEDS: Cholecalciferol (Vitamin D3) 1,000 Unit Tab PO SCH (08:14)
[2016-12-10] MEDS: Finasteride 5 MG Tab PO SCH (08:17)
--- NOTE | 2016-12-10 10:40 | PN ---
DATE SEEN: 12/10/2016 SUBJECTIVE: Arsalan Thibodeaux is an 86-year-old, male, in swing bed care, postoperative cervical neck infection. Antibiotics dates are 11/12/2016 to 12/21/2016. He has had some hectic shower attendant fevers, 100-101. Mild lethargy and night sweats. I spoke with Dr. Ritchie, Infectious Disease specialist, [facility]. Normal CBC, normal blood cultures, normal urinalysis. Chest x-ray without new findings. Drug rash of concern. PLAN: Agreed to stop the cephalosporin and continue vancomycin only. We will proceed accordingly. /[id number] DAWIT/MARK
[2016-12-10] MEDS: Acetaminophen 325 MG Tab PO PRN (18:03)
[2016-12-10] MEDS: Multivitamin Tab PO SCH (21:10)
[2016-12-10] MEDS: Latanoprost 0.005% Ophth Soln 2.5 ML Bottle *PTOM EYERT SCH (21:11)
[2016-12-10] MEDS: Lutein/Minerals/Vitamin C/Vitamin E Acetate Cap PO SCH (21:11)
[2016-12-10] MEDS: QUEtiapine 50 MG Tab.SR PO SCH (21:12)
[2016-12-11] MEDS: Acetaminophen 325 MG Tab PO PRN ×2 (04:37→08:58)
[2016-12-11] MEDS: Levothyroxine 75 MCG Tab PO SCH (06:33)
--- NOTE | 2016-12-11 08:15 | PN ---
DATE SEEN: 12/11/2016 SUBJECTIVE: Arsalan Thibodeaux is an 86-year-old male, on long- term antibiotic therapy for complicated postoperative cervical neck surgery. Recent visit with Dr. Ritchie in place. He had some episodic hectic morning fevers. Drug fever under consideration. Other diagnostic studies; CBC, blood cultures, and urinalysis were otherwise without complicating issue. In speaking with Dr. Ritchie, he stopped the antibiotic of concern. He continues to be on vancomycin. A little more wakeful and little more alert. He appears to be otherwise comfortable. Discharge planning, likely longterm. Antibiotics will be continued until December 21. OBJECTIVE: GENERAL: In good spirits this morning. CHEST: Clear in all lung garcia. HEART: Regular. ABDOMEN: Benign. NECK: Palpable tenderness to posterior neck. IMPRESSION: Complicated postoperative infection. PLAN: Continue medications as present. Pharmacy and Infectious Disease are monitoring his vancomycin levels, treatments, and laboratory studies. /[id number] DAWIT/MARK
[2016-12-11] MEDS: Sodium Chloride 0.9% 10 ML Syringe FLUSH PRN ×3 (09:12→22:17)
[2016-12-11] MEDS: Sodium Chloride 0.9% 250 ML IV SCH (09:19)
[2016-12-11] MEDS: Ferrous Gluconate 324 MG Tab PO SCH ×2 (16:20→21:57)
[2016-12-11] MEDS: predniSONE 20 MG Tab PO SCH (16:20)
[2016-12-11] MEDS: Tamsulosin 0.4 MG Cap.ER PO SCH (16:20)
[2016-12-11] MEDS: Aspirin 81 MG Tab.EC PO SCH (16:21)
[2016-12-11] MEDS: amLODIPine 5 MG Tab PO SCH (16:21)
[2016-12-11] MEDS: Acetaminophen 325 MG Tab PO SCH ×3 (16:22→22:00)
[2016-12-11] MEDS: Finasteride 5 MG Tab PO SCH (16:22)
[2016-12-11] MEDS: Cholecalciferol (Vitamin D3) 1,000 Unit Tab PO SCH (16:24)
[2016-12-11] MEDS: Cyanocobalamin (Vitamin B12) 1,000 MCG Tab PO SCH (16:24)
[2016-12-11] MEDS: Lutein/Minerals/Vitamin C/Vitamin E Acetate Cap PO SCH (21:58)
[2016-12-11] MEDS: Multivitamin Tab PO SCH (21:58)
[2016-12-11] MEDS: Latanoprost 0.005% Ophth Soln 2.5 ML Bottle *PTOM EYERT SCH (21:59)
[2016-12-11] MEDS ORDERED: Fluconazole/Normal Saline 200 MG in Premix Bag 1 BAG IV SCH (22:00)
[2016-12-11] MEDS: QUEtiapine 50 MG Tab.SR PO SCH (22:01)
[2016-12-11] MEDS: Acetaminophen 650 MG Supp RECTAL PRN (22:17)
[2016-12-12 01:27] VITALS: BP 113/61
[2016-12-12] MEDS: Acetaminophen 650 MG Supp RECTAL PRN (02:23)
[2016-12-12] MEDS: Levothyroxine 75 MCG Tab PO SCH (05:47)
--- NOTE | 2016-12-12 07:50 | PCM.DCSUM1 ---
Discharge Summary - Hospital Course Free Text/Narrative:: Date of Admission: 11/12/16 Date of Discharge/: 12/12/16 Admission Diagnosis: Wound infection s/p neck surgery Diagnosis: Wound infection s/p neck surgery, failed antibiotic therapy. Consults: PT, OT. Procedures: None. HPI: Patient is an 86 yo male who had cervical laminectomy 10/04/16 and subsequently developed a wound infection. Had a long protracted course of treatment with IV antibiotic therapy and was ultimately transferred to swing bed status 11/12/[address] [facility] for IV antibiotic therapy. Started to have intermittent temperature spikes and septic workup on multiple occasions was unrevealing. Condition deteriorated rapidly the night prior to and diflucan was started for possible fungal infection but patient continued to decline and at 0720 with family by bedside patient . Px exam: exam revealed pupils fixed and dilated, no pulse, no respirations at 0728. Time of : 0712/12/16 Disposition: To home in [place]. - Discharge Data Discharge Date: 12/12/16 Discharge Disposition: 20 Preliminary Cause of *Q: Sepsis & Multi System Organ Failure Condition: - Patient Summary/Data Consults: Consultations 11/12/16 12:58 OT Evaluation and Treatment [CONS] Routine Please Evaluate and Treat. OT Reason for Consult: ADL's This query below is only for informational purposes and is not editable. PT Evaluation and Treatment [CONS] Routine Please Evaluate and Treat. PT Reason for Consult: Ambulation This query below is only for informational purposes and is not editable. - Discharge Plan Home Medications: Home Meds Cholecalciferol (Vitamin D3) [Vitamin D3] 2,000 unit PO DAILY 10/07/16 [History] Finasteride 5 mg PO DAILY 10/07/16 [History] Latanoprost [Xalatan 0.005% Oph Soln] 1 drop EYERT BEDTIME 10/07/16 [History] Levothyroxine 37.5 mcg PO DAILY 10/07/16 [History] Lutein 6 mg PO BEDTIME 10/07/16 [History] Multivitamin [Daily Alee] 1 tab PO BEDTIME 10/07/16 [History] Omeprazole 20 mg PO DAILY PRN 10/07/16 [History] Propylene Glycol/Peg 400 [Systane 0.3-0.4% Eye Drops] 1 drop EYEBOTH BID PRN 11/15 [History] Sennosides/Docusate Sodium [Senna-S] 1 tab PO BID PRN 10/07/16 [History] Tamsulosin [Flomax] 0.8 mg PO BEDTIME 10/07/16 [History] Triamcinolone Acetonide [Nasacort] 1 spray NASBOTH BID PRN 10/07/16 [History] Ascorbate Calcium [Vitamin C] 250 mg PO DAILY PRN 10/27/16 [History] Aspirin [Halfprin] 81 mg PO DAILY 10/27/16 [History] Cyanocobalamin (Vitamin B-12) [B-12] 1,000 mcg PO DAILY 10/27/16 [History] FLUoxetine [PROzac] 10 mg PO BEDTIME 10/27/16 [History] Lutein/Min/Vit C/Vit E Acetate [Ocuvite Lutein] 1 cap PO BEDTIME 10/27/16 [ History] Menthol [Perform Pain Reliever] 1 applic TP QID PRN 10/27/16 [History] Acetaminophen [Tylenol 160 MG/5 ML Liq] 650 mg PO Q6H PRN 11/12/16 [History] Bisacodyl 10 mg RECTAL DAILY PRN 11/12/16 [History] Clobetasol Propionate [Temovate] 1 applic TOP BID PRN 11/12/16 [History] LORazepam 0.5 mg PO QID PRN 11/12/16 [History] NaPh,Mb-Db/K Ph,MB-DB [Phos-NaK Powder] 1 packet PO TID 11/12/16 [History] amLODIPine [Norvasc] 5 mg PO DAILY 11/12/16 [History] Patient Handouts: Venous Thromboembolism Prevention Forms: Take Home DC Nutrition Plan - Discharge Summary/Plan Comment DC Time >30 min.: No - Patient Data Vitals - Most Recent: Last Vital Signs Temp 36.6 C 12/12/16 02:00 Pulse 118 H 12/12/16 02:00 Resp 44 H 12/12/16 02:00 BP 113/61 12/11/16 22:00 Pulse Ox 68 L 12/11/16 22:00 Weight - Most Recent: 62.369 kg I&O - Last 24 hours: Intake & Output 12/11/16 12/12/16 12/12/16 22:59 06:59 14:59 Intake Total 130 Balance 130 MIKE Results - Last 24 hrs: Microbiology 12/08/16 11:50 Aerobic Blood Culture - Preliminary Blood - Venous - Lab Draw NO GROWTH AFTER 3 DAYS Anaerobic Blood Culture - Preliminary NO GROWTH AFTER 3 DAYS 12/08/16 11:45 Aerobic Blood Culture - Preliminary Blood - Venous NO GROWTH AFTER 3 DAYS Anaerobic Blood Culture - Preliminary NO GROWTH AFTER 3 DAYS Med Orders - Current: Current Medications Acetaminophen (Tylenol) 650 mg PO Q4H PRN PRN Reason: Pain Last Admin: 12/11/16 08:58 Dose: 650 mg Acetaminophen (Tylenol) 650 mg PO TID [facility] Last Admin: 12/11/16 22:00 Dose: Not Given Acetaminophen (Tylenol) 650 mg RECTAL Q4H PRN PRN Reason: Fever Greater Than 101 Last Admin: 12/12/16 02:23 Dose: 650 mg Amlodipine Besylate (Norvasc) 5 mg PO DAILY [facility] Last Admin: 12/11/16 16:21 Dose: Not Given Ascorbic Acid (Vitamin C) 250 mg PO DAILY PRN PRN Reason: URI SYMPTOMS Aspirin (Halfprin) 81 mg PO DAILY [facility] Last Admin: 12/11/16 16:21 Dose: Not Given Bisacodyl (Dulcolax) 10 mg RECTAL DAILY PRN PRN Reason: Constipation Cholecalciferol (Vitamin D3) 2,000 units PO DAILY [facility] Last Admin: 12/11/16 16:24 Dose: Not Given Clobetasol Propionate (Clobetasol Propionate 0.05%) 0 gm TOP BID PRN PRN Reason: RASH/ITCHING Cyanocobalamin (Vitamin B12) 1,000 mcg PO DAILY [facility] Last Admin: 12/11/16 16:24 Dose: Not Given Ferrous Gluconate (Ferrous Gluconate) 324 mg PO TID [facility] Last Admin: 12/11/16 21:57 Dose: Not Given Finasteride (Proscar) 5 mg PO DAILY [facility] Last Admin: 12/11/16 16:22 Dose: Not Given Fluticasone Propionate (Flonase) 0 gm NASBOTH DAILY PRN PRN Reason: RHINITIS Haloperidol Lactate (Haldol) 0.5 mg IM Q8H PRN PRN Reason: Agitation Last Admin: 11/15/16 08:50 Dose: 0.5 mg Sodium Chloride (Normal Saline) 250 mls @ 100 mls/hr IV ASDIRECTED [facility] Last Admin: 12/11/16 09:19 Dose: 100 mls/hr Vancomycin HCl 1,000 mg/ (Sodium Chloride) 250 mls @ 250 mls/hr IV Q24H AILYN Last Admin: 12/11/16 09:12 Dose: 250 mls/hr Fluconazole/Sodium Chloride (200 mg/ Premix) 100 mls @ 100 mls/hr IV Q24H [facility] Last Admin: 12/11/16 22:18 Dose: 100 mls/hr Latanoprost (Xalatan 0.005% Oph Soln) 0 ml EYERT BEDTIME [facility] Last Admin: 12/11/16 21:59 Dose: 1 drop Levothyroxine Sodium (Levothyroxine) 37.5 mcg PO DAILY@0600 [facility] Last Admin: 12/12/16 05:47 Dose: Not Given Menthol (Perform Pain Reliever) 0 ml TP QID PRN PRN Reason: PAIN Last Admin: 12/08/16 20:25 Dose: 1 ml Multivitamins/Minerals/Vitamin C (Tab-A-Alee) 1 tab PO BEDTIME [facility] Last Admin: 12/11/16 21:58 Dose: Not Given Pantoprazole Sodium (Protonix) 40 mg PO DAILY PRN PRN Reason: HEARTBURN Prednisone (Prednisone) 20 mg PO WITHBREAKFAST [facility] Last Admin: 12/11/16 16:20 Dose: Not Given Propylene Glycol (Systane Lubricant) 0 ml EYEBOTH BID PRN PRN Reason: Dry Eyes Quetiapine Fumarate (Seroquel Xr) 50 mg PO BEDTIME [facility] Last Admin: 12/11/16 22:01 Dose: Not Given Senna/Docusate Sodium (Senna Plus) 1 tab PO BID PRN PRN Reason: Constipation Last Admin: 11/20/16 08:52 Dose: 1 tab Sodium Chloride (Saline Flush) 10 ml FLUSH ASDIRECTED PRN PRN Reason: IV Use Last Admin: 12/11/16 22:17 Dose: 10 ml Tamsulosin HCl (Flomax) 0.8 mg PO DAILY [facility] Last Admin: 12/11/16 16:20 Dose: Not Given Vancomycin HCl (Pharmacy To Dose - Vancomycin) 0 dose .XX ASDIRECTED [facility] Vit C/Vit E/Zinc/Copper/Lutein (Ocuvite Lutein) 1 each PO BEDTIME [facility] Last Admin: 12/11/16 21:58 Dose: Not Given Discontinued Medications Acetaminophen (Tylenol) 650 mg PO Q6H PRN PRN Reason: mild pain Last Admin: 11/12/16 16:05 Dose: 650 mg Fluoxetine HCl (Prozac) 10 mg PO BEDTIME [facility] Last Admin: 11/15/16 20:50 Dose: 10 mg Fluoxetine HCl (Prozac) 10 mg PO TuThSa@2100 [facility] Stop: 11/21/16 21:01 Last Admin: 11/21/16 21:34 Dose: 10 mg Cefepime HCl 2 gm/ Sodium (Chloride) 50 mls @ 100 mls/hr IV Q8H [facility] Stop: 12/21/16 23:00 Last Admin: 11/28/16 05:40 Dose: 100 mls/hr Vancomycin HCl 1,000 mg/ (Sodium Chloride) 250 mls @ 250 mls/hr IV Q12H [facility] Stop: 12/21/16 23:00 Last Admin: 11/13/16 04:11 Dose: 250 mls/hr Vancomycin HCl 1,000 mg/ (Sodium Chloride) 250 mls @ 250 mls/hr IV Q12H [facility] Stop: 12/21/16 23:00 Last Admin: 11/20/16 06:30 Dose: 250 mls/hr Vancomycin HCl 750 mg/ Sodium (Chloride) 250 mls @ 250 mls/hr IV Q12H [facility] Stop: 11/28/16 20:00 Last Admin: 11/28/16 18:46 Dose: 250 mls/hr Cefepime HCl 2 gm/ Sodium (Chloride) 50 mls @ 100 mls/hr IV Q8H [facility] Last Admin: 12/10/16 05:41 Dose: 100 mls/hr Vancomycin HCl 750 mg/ Sodium (Chloride) 250 mls @ 250 mls/hr IV Q12H [facility] Stop: 12/21/16 20:00 Last Admin: 12/03/16 06:02 Dose: 250 mls/hr Vancomycin HCl 750 mg/ Sodium (Chloride) 250 mls @ 250 mls/hr IV Q12H [facility] Stop: 12/21/16 19:01 Last Admin: 12/07/16 05:38 Dose: 250 mls/hr Vancomycin HCl 500 gm/ Sodium (Chloride) 250 mls @ 500 mls/hr IV Q12H [facility] Vancomycin HCl 500 mg/ Sodium (Chloride) 250 mls @ 166.667 mls/hr IV ONETIME ONE Stop: 12/07/16 20:59 Last Admin: 12/07/16 20:10 Dose: 166.667 mls/hr Vancomycin HCl 500 mg/ Sodium (Chloride) 250 mls @ 166.667 mls/hr IV Q12H [facility] Last Admin: 12/08/16 05:06 Dose: 166.667 mls/hr Vancomycin HCl 750 mg/ Sodium (Chloride) 250 mls @ 250 mls/hr IV Q12H [facility] Stop: 12/21/16 20:00 Last Admin: 12/10/16 06:25 Dose: 250 mls/hr Influenza Virus Vaccine (Fluzone Quad [id number]) 60 mcg IM ONETIME ONE Stop: 11/25/16 09:01 Last Admin: 12/03/16 10:26 Dose: 60 mcg Lorazepam (Ativan) 0.5 mg PO QID PRN PRN Reason: Anxiety/agitation Last Admin: 11/13/16 22:10 Dose: 0.5 mg Potassium Phos/Sodium Phos (Phos-Nak Powder) 1 each PO TID [facility] Stop: 11/15/16 09:01 Last Admin: 11/15/16 08:39 Dose: 1 packet Prednisone (Prednisone) 10 mg PO BIDMEALS [facility] Last Admin: 12/01/16 08:29 Dose: 10 mg Prednisone (Prednisone) 10 mg PO WITHBREAKFAST [facility] Stop: 12/05/16 08:01 Last Admin: 12/05/16 08:07 Dose: 10 mg Quetiapine Fumarate (Seroquel) 25 mg PO BEDTIME [facility] Quetiapine Fumarate (Seroquel) 25 mg PO ONETIME ONE Stop: 11/14/16 10:31 Last Admin: 11/14/16 11:09 Dose: 25 mg Quetiapine Fumarate (Seroquel) Confirm Administered Dose 50 mg .ROUTE .STK-MED ONE Stop: 11/15/16 20:41 Last Admin: 11/15/16 20:47 Dose: Not Given Tamsulosin HCl (Flomax) 0.8 mg PO BEDTIME [facility] Last Admin: 11/29/16 20:16 Dose: 0.8 mg *Q Meaningful Use (DIS) - VTE *Q VTE Criteria *Q: - Stroke *Q Stroke Criteria *Q: - AMI *Q AMI Criteria *Q:
== END 2016-12-12 07:20 | disposition expired | DRG 863 ==
LOC: FB.MS 12:40
PROVIDERS: ADMIT Family Medicine; ATTEND Family Medicine
DX: T81.4XXA Infection following a procedure, initial encounter (principal); R53.1 Weakness; Z79.2 Long term (current) use of antibiotics; I10 Essential (primary) hypertension; Z66 Do not resuscitate; L50.1 Idiopathic urticaria; D64.9 Anemia, unspecified; R41.0 Disorientation, unspecified; N40.1 Benign prostatic hyperplasia with lower urinary tract symptoms; R35.1 Nocturia; Z98.1 Arthrodesis status; Z87.891 Personal history of nicotine dependence; E53.8 Deficiency of other specified B group vitamins; E03.9 Hypothyroidism, unspecified; M19.90 Unspecified osteoarthritis, unspecified site; K21.9 Gastro-esophageal reflux disease without esophagitis; Z79.82 Long term (current) use of aspirin; H35.30 Unspecified macular degeneration; H40.9 Unspecified glaucoma; Z23 Encounter for immunization
CPT/HCPCS: 36415; 51702; 51798; 71020; 80048; 80202; 81001; 82565; 82728; 83540; 83550; 85025; 85027; 85045; 86140; 87040; 90686; 97110-GO; 97110-GP; 97116-GP; 97140-GP; 97162-GP; 97166-GO; 97530-GO; 97530-GO-KX; 97530-GP; 97535-GO; 97542-GO; A9270-GY; G0008; J0692; J1450; J1630; J3370; J7050